=== PATIENT | female | born 1950 | race Caucasian/White ===

== ENCOUNTER 2017-12-17 13:32 | Emergency (ER) | payer MEDICARE, BC, SELFPAY ==
[2017-12-17 13:33] VITALS: BP 168/95; PULSE 72; RESP 16; TEMP 36.2; BMI 40.0
[2017-12-17] MEDS: Ketorolac 10 MG Tablet PO (15:59)
--- NOTE | 2017-12-17 16:19 | ED.DCSUM_ITS ---
- ER Visit Summary Date of Service: 12/17/17 Chief Complaint: Left ankle pain History of Present Illness: The patient is a 67 F who states that she stepped in a hole today falling and as she fell she caused an eversion injury to her left ankle. She notes swelling over the lateral aspect of the left ankle. She notes pain in the foot on the right as well. She denies any other trauma. This happened this morning she is taking Gatzke. Physical Examination: Afebrile vital signs are stable Patient is neurovascular intact. She has swelling over the lateral ATF on the left. No fibular head pain. Tenderness at the base of the fifth metatarsal and the fourth metatarsal on the right. Test Results: X-rays were negative for fracture Emergency Department Course and Treatment: Patient will use Edmond wrap ice and anti-inflammatories. She will follow-up with her doctor if not improving 10-14 days. She advised to use a cane to help support weight. Impression: 1. Right foot sprain 2. Left ankle sprain This note was generated with [employer] dictation software. It may contain incorrect words, spelling, and punctuation that were not noted in review of the chart prior to signing ED Disposition - Plan for ED Patient: Disposition: Home or Assisted Living Chief Complaint: Lower Extremity Injury Instructions: ED Sprain Ankle W X Ray, ED Sprain Foot Prescriptions: Ibuprofen [Motrin] 800 mg PO TID PRN PRN #20 tab PRN Reason: Pain Referrals: Reese Peterson III, MD [Primary Care Provider] - 10-14 Days if not better
[2017-12-17 16:39] VITALS: BP 176/87; PULSE 86; RESP 18; O2SAT 100
== END 2017-12-17 16:40 | disposition home or self-care (01) ==
PROVIDERS: Emergency Provider Emergency Medicine; Family Provider Family Medicine; PCP Family Medicine
DX: S93.402A Sprain of unspecified ligament of left ankle, initial encounter (principal); S93.601A Unspecified sprain of right foot, initial encounter; E66.9 Obesity, unspecified; K21.9 Gastro-esophageal reflux disease without esophagitis; I10 Essential (primary) hypertension; Z79.899 Other long term (current) drug therapy; W17.2XXA Fall into hole, initial encounter; Y93.01 Activity, walking, marching and hiking; Y92.89 Other specified places as the place of occurrence of the external cause; Y99.8 Other external cause status
CPT/HCPCS: 73610; 73630; 99283

== ENCOUNTER → 2019-01-10 | Outpatient (CLI) | payer MEDICARE, BC, SELFPAY ==
--- NOTE | 2019-01-11 15:16 | STRESSREP ---
Stress Test Report Date: 01/10/2019 Procedure: Exercise tolerance test/imaging study Indications: Shortness of breath Consent: Per the patient Procedure: The patient exercised on a Darren protocol for 4 minutes and 2 seconds achieving a peak heart rate of 142 bpm (93 % predicted maximal heart rate) with a peak blood pressure 222/100 mmHg and a peak MET capacity of 5.8 METs. The baseline ECG demonstrated normal sinus rhythm. The peak exercise ECG demonstrated frequent PVCs sometimes in couplets. No significant ischemic changes. EKG during recovery revealed no significant ischemic changes The functional capacity was considered decreased for age. There was [no complaint of chest discomfort during exercise or recovery]. The examination was discontinued secondary to shortness of breath. Impression: 1. Technically adequate (percent predicted maximal heart rate greater than 85%) exercise tolerance test 2. Stress test is negative for exercise-induced EKG changes of ischemia 3. The test test is negative for exercise-induced chest pain 4. Functional capacity is decreased for age 5. Nuclear images pending Myocardial perfusion imaging study: Technique: The patient was injected with 15 mCi of technetium 99m Cardiolite and subsequently rest SPECT Cardiolite nuclear imaging was obtained in the horizontal long, vertical long, and short axis views. The patient exercised on a Darren protocol. Please see above for details. The patient was injected with 44.7 mCi of technetium 99m Cardiolite and subsequently stress SPECT Cardiolite nuclear imaging was obtained in the horizontal long, vertical long, and short axis views. A gated Cardiolite study at peak stress was obtained. Interpretation: Rest and stress SPECT Cardiolite nuclear imaging status post realignment, normalization, and attenuation correction, demonstrates mild decrease in the radioisotope uptake in the apex on both the rest and stress images. The gated Cardiolite study demonstrates no significant regional wall motion abnormalities. The reported LVEF is greater than 70 %. These findings are suggestive of apical thinning, normal variant. Impression: 1. There is no evidence of significant ischemia or infarction. 2. The gated Cardiolite study reports an LVEF of greater than 70 %. This note was generated with [employer] software. It may contain incorrect words, spelling, and punctuation that were not noted in checking the note before signing.
== END | disposition home or self-care (01) ==
LOC: CVS 06:50
PROVIDERS: Family Provider Family Medicine; PCP Family Medicine
DX: R06.02 Shortness of breath (principal); I10 Essential (primary) hypertension
CPT/HCPCS: 78452; 93017; A9500; A4216

== ENCOUNTER 2019-01-28 14:59 | Emergency (ER) | payer MEDICARE, BC, SELFPAY ==
[2019-01-28 15:02] VITALS: BP 159/93; PULSE 64; RESP 16; TEMP 36.8; O2SAT 98; BMI 39.4
--- NOTE | 2019-01-28 15:53 | CT_ITS ---
STUDY: CT ABDOMEN AND PELVIS WITH CONTRAST REASON FOR EXAM: Female, 68 years old. Abdominal pain. Diverticulitis RADIATION DOSAGE (If Supplied By Facility): CTDIvol = ( 17.07 ) mGy, DLP = ( 1143.55 ) mGycm TECHNIQUE: Transaxial images were obtained from the dome of the diaphragm to the symphysis pubis without oral contrast. IV 100mL Isovue-300 100 was administered. Sagittal and coronal images were reconstructed. Individualized dose optimization techniques were used for this CT. COMPARISON: None. FINDINGS: Lung bases demonstrate no evidence for consolidative process. Bibasilar platelike atelectasis. Small hiatal hernia. No pericardial effusion. Hepatic steatosis. Pancreas and adrenal glands are grossly within normal limits. Mild dilatation of the common bile duct post cholecystectomy Spleen appears unremarkable. Bowel gas pattern is nonobstructive. No free intraperineal air. Wall thickening of the sigmoid colon with associated diverticula disease and adjacent inflammatory stranding suggestive of acute uncomplicated sigmoid colonic diverticulitis. No free intraperitoneal air. No drainable fluid collections. Osseous structures demonstrate no acute abnormalities. Kidneys demonstrate no evidence for hydronephrosis. Mild degenerative changes of the lumbar spine. Small sclerotic density in the bilateral 2. Pubic rami IMPRESSION: Acute sigmoid colonic diverticulitis. No evidence for drainable fluid collections. No evidence for free intraperitoneal air. Electronically Signed: Max Jackson, at 17:40 EDT Tel , Service support , CT/Abdomen/Pelvis W IV Cont ONLY
--- NOTE | 2019-01-28 15:54 | ED.VIS.GEN ---
History of Present Illness Chief Complaint: Back Informant: Patient Onset: Yesterday Context: Gradual Onset Timing: Intermittent Current Severity: Moderate Maximum Severity: Moderate Narrative: Patient presents to the emergency department multiple complaints. The patient states that over the past week or so, she is had urinary symptoms. She is had some increased frequency and urgency. She states yesterday, she began to have chills, nausea, and one episode of vomiting. She also began to have loose watery diarrhea and pain in her left lower quadrant. She does have a history of diverticulitis and states this feels similar. States today, she began have some pain in her right low back that was worse with motion. She denies any trauma. She denies any falls. Patient does have history of hypertension and hypothyroid. She is had a vaginal hysterectomy but no other abdominal surgery. She is otherwise been in her normal state of health. Prior similar symptoms: No Recent Illness/Hospitalization: No Past Medical History - Allergies and Home Meds Allergies/Adverse Reactions: Allergies No Known Allergies Allergy (Verified 01/28/19 15:02) Primary Care Physician: Reese Peterson III, MD [Primary Care Provider] - Prior records reviewed: Yes Past Medical History: - - Hypertension, hypothyroid Surgical History: hysterectomy Smoking Status: Former smoker Review of Systems General: Reports: Chills. Denies: Fever, Sweats Eyes: Denies: Visual changes - bilaterally, Diplopia ENT: Denies: Rhinorrhea, Sore throat Cardiovascular: Denies: Chest pain, Palpitations Respiratory: Denies: Dyspnea, Cough, Dyspnea on exertion Gastrointestinal: Reports: Abdominal pain, Nausea, Vomiting, Diarrhea. Denies: Melena, Hematochezia Genitourinary: Reports: Dysuria, Frequency. Denies: Hematuria Musculoskeletal: Reports: Back pain. Denies: Extremity Pain Skin: Denies: Rash, Wounds Neurological: Denies: Headache, Weakness, Numbness Physical Exam Vital Signs/Narrative: Vital Signs Temp Pulse Resp BP Pulse Ox 01/28/19 15:02 98.3 F 64 16 159/93 H 98 Inital Vital Signs reviewed: Yes General: Well nourished, Well developed, No Acute Distress Head: Normocephalic, Atraumatic Eyes: Perrl, EOMI ENT: Moist mucous membranes, No rhinorrhea Neck: Supple, Nontender Cardiovascular: Regular rate, Regular rhythm, No murmurs Respiratory: No distress, CTA bilaterally, Chest nontender Abdomen: Soft, Nondistended, Normal bowel sounds, Tender. Negative for: Guarding, Rebound tenderness Back: Nontender, Normal Inspection Extremities: Nontender, No edema Skin: Normal color, No rash Neurological: Alert, Oriented x3, Cranial nerves II-XII grossly intact, Normal Strength, Normal Sensation Psychological: Normal affect, Normal Mood Diagnostic/Tx/Re-eval Clinical Impression(s) from Imaging Studies Abdomen/Pelvis CT 01/28/19 15:53 Abnormal Lab Results 01/28/19 01/28/19 01/28/19 15:50 16:10 16:10 WBC 12.2 H RBC 5.15 Hgb 15.2 H Hct 46.1 MCV 89.5 MCH 29.5 MCHC 33.0 RDW Std Deviation 43.8 RDW Coeff of Arvind 13.5 Plt Count 263 MPV 10.4 Immature Gran % (Auto) 0.400 Neut % (Auto) 71.1 H Lymph % (Auto) 18.8 L [place] % (Auto) 8.9 Eos % (Auto) 0.4 Baso % (Auto) 0.4 Absolute Neuts (auto) 8.7 H Absolute Lymphs (auto) 2.30 Nucleated RBC % 0 Sodium 137 Potassium 5.0 Chloride 103 Carbon Dioxide 25.0 Anion Gap 9 BUN 13 Creatinine 0.95 Estim Creat Clear Calc 48.94 Est GFR (MDRD) Af Amer 75 Est GFR (MDRD) Non-Af 62 BUN/Creatinine Ratio 13.7 Glucose 92 Lactic Acid Calcium 9.6 Total Bilirubin 1.30 H AST 30 ALT 26 Alkaline Phosphatase 80 Total Protein 8.8 H Albumin 3.6 Globulin 5.2 H Albumin/Globulin Ratio 0.7 L Urine Color Yellow Urine Clarity Sl. Cloudy Urine pH 6.0 Ur Specific [place] 1.010 Urine Protein Negative Urine Glucose (UA) Normal Urine Ketones 15 H Urine Occult Blood Negative Urine Nitrite Negative Urine Bilirubin Negative Urine Urobilinogen Normal Ur Leukocyte Esterase Negative Urine RBC 0 SEEN Urine WBC 0 SEEN Ur Squamous Epith Cells 0-5 SEEN Urine Bacteria 0 SEEN Urine Mucus 0 SEEN 01/28/19 16:10 WBC RBC Hgb Hct MCV MCH MCHC RDW Std Deviation RDW Coeff of Arvind Plt Count MPV Immature Gran % (Auto) Neut % (Auto) Lymph % (Auto) [place] % (Auto) Eos % (Auto) Baso % (Auto) Absolute Neuts (auto) Absolute Lymphs (auto) Nucleated RBC % Sodium Potassium Chloride Carbon Dioxide Anion Gap BUN Creatinine Estim Creat Clear Calc Est GFR (MDRD) Af Amer Est GFR (MDRD) Non-Af BUN/Creatinine Ratio Glucose Lactic Acid 1.3 Calcium Total Bilirubin AST ALT Alkaline Phosphatase Total Protein Albumin Globulin Albumin/Globulin Ratio Urine Color Urine Clarity Urine pH Ur Specific [place] Urine Protein Urine Glucose (UA) Urine Ketones Urine Occult Blood Urine Nitrite Urine Bilirubin Urine Urobilinogen Ur Leukocyte Esterase Urine RBC Urine WBC Ur Squamous Epith Cells Urine Bacteria Urine Mucus - Medical Decision Making IV was established. Patient was given analgesics and had total resolution of her pain. Screening labs are unremarkable. Urine does not show evidence of infection. CT demonstrates uncomplicated diverticulitis of the sigmoid colon. I do feel that this is likely irritation causing her urinary frequency. The patient does not have a fever. She is feeling improved. She wants to attempt outpatient therapy and I feel this is reasonable. The patient will be treated with Cipro and Flagyl. She will be given a short course of analgesics. She was counseled concerning symptoms and reasons to return. She will be discharged home. Impression 1. Acute uncomplicated diverticulitis ED Disposition - Plan for ED Patient: Disposition: Home or Assisted Living Instructions: Diverticulitis Prescriptions: Ciprofloxacin [Cipro] 500 mg PO BID #14 tab Prescription Printed metroNIDAZOLE [Flagyl] 500 mg PO Q8H #21 tab Prescription Printed Hydrocodone Bitart/Apap 5-325 [[place] 5MG-325MG] 1 tab PO Q6H PRN PRN 3 Days #10 tab PRN Reason: Pain Prescription Printed Referrals: Reese Peterson III, MD [Primary Care Provider] -
[2019-01-28 15:55] LABS: Bacteria 0 SEEN /hpf (None Seen); Mucous, Urine 0 SEEN /hpf (<or=2+); Red Blood Cells-Urine 0 SEEN /hpf (0-5); White Blood Cells 0 SEEN /hpf (0-5)
[2019-01-28 15:59] LABS: Color, Urine Yellow (Yellow); Glucose, Dipstick Normal (Normal); Ketone-Dipstick 15 mg/dl (Negative); Leukocyte Esterase-Dipstick Negative /ul (Negative); Nitrite-Dipstick Negative (Negative); Occult Blood-Urine Negative /ul (Negative); Protein-Dipstick Negative (Negative); Urine Bilirubin Dipstick Negative (Negative); Urine Clarity Sl. Cloudy (Clear); Urine Urobilinogen Normal (Normal)
[2019-01-28 16:10] LABS: Squamous Epithelial Cells - UA 0-5 SEEN /hpf (5-10)
[2019-01-28] MEDS: Ondansetron 4 MG/2 ML Vial IV (16:13)
[2019-01-28] MEDS: 0.9% Normal Saline 1,000 ML 1000 ML IV (16:13)
[2019-01-28] MEDS: Morphine 4 MG/ML Syringe IV (16:14)
[2019-01-28 16:28] LABS: Absolute Neutrophil Count 8.7 X10^3/uL (2.0-7.7); Basophil# 0.05 X10^3/uL; Basophil% 0.4 % (0-1); Eosinophil# 0.05 X10^3/uL; Eosinophils% 0.4 % (0-5); Hematocrit 46.1 % (37-47); Hemoglobin 15.2 g/dL (12.0-15.0); Lymphocyte % 18.8 % (19-41); Mean Corpuscular Hgb 29.5 pg (27.0-32.0); Mean Corpuscular Volume 89.5 fL (81-99); Mean Platelet Vol. 10.4 fl (6.2-12.0); Monocyte# 1.09 X10^3/uL; Monocyte% 8.9 % (0-10); NRBC Flagged by Analyzer 0 % (0-5); Neutrophil % 71.1 % (47-70); Platelet Count 263 K/mm3 (150-450); RBC Distribution Width CV 13.5 % (11.6-14.6); RBC Distribution Width SD 43.8 fl (35.1-43.9); Red Blood Count 5.15 M/mm3 (4.2-5.4); White Blood Count 12.2 K/mm3 (4.4-11.0)
[2019-01-28 16:45] LABS: ALB/GLOB Ratio 0.7 RATIO (0.9-2.4); AST(SGOT) 30 U/L (15-37); Alanine Aminotransfer ALT/SGPT 26 U/L (13-56); Albumin, Serum 3.6 g/dL (3.2-5.0); Alkaline Phosphatase 80 U/L (45-117); Anion Gap 9 (5-15); BUN 13 mg/dL (7-18); BUN/Creat Ratio 13.7 RATIO (10-20); Calcium,Total 9.6 mg/dL (8.5-10.1); Chloride 103 mmol/L (98-107); Creatinine, Serum 0.95 mg/dL (0.55-1.02); EST Glomerular Filtration Rate 62 mL/min (>60); Est Glom Filt Rate - Afr Amer 75 mL/min (>60); Estimated Creatinine Clearance 48.94 ml/min; Globulin 5.2 g/dL (2.2-4.2); Glucose 92 mg/dL (74-106); Protein, Total 8.8 g/dL (6.4-8.2); Sodium Level 137 mmol/L (136-145)
[2019-01-28 16:51] LABS: Lactic Acid 1.3 mmol/L (0.4-2.0)
[2019-01-28 17:23] VITALS: RESP 16
[2019-01-28 18:29] VITALS: BP 166/69; PULSE 56; RESP 16; O2SAT 97
== END 2019-01-28 18:30 | disposition home or self-care (01) ==
LOC: ED 16:15
PROVIDERS: Emergency Medicine; Emergency Provider Emergency Medicine; Family Provider Family Medicine; PCP Family Medicine
DX: K57.32 Diverticulitis of large intestine without perforation or abscess without bleeding (principal); E03.9 Hypothyroidism, unspecified; I10 Essential (primary) hypertension; Z79.899 Other long term (current) drug therapy; Z87.891 Personal history of nicotine dependence
CPT/HCPCS: 74177; 80053; 81001; 83605; 85025; 96361; 96374; 96375; 99284; J7030; Q9967; J2405

== ENCOUNTER 2020-12-21 13:36 | Emergency (ER) | payer MEDICARE, BC, SELFPAY ==
[2020-12-21 13:37] VITALS: BP 158/72; PULSE 81; RESP 16; TEMP 37.3; O2SAT 97; BMI 37.8
--- NOTE | 2020-12-21 14:29 | EDS_ITS ---
HPI HPI - GI History of Present Illness Chief Complaint: Abd Pain Informant: patient Abdominal Pain/Flank Pain Onset: Days Context: Gradual Onset Timing: Continuous and Waxes and wanes Quality: Aching Location: LLQ Current Severity: Mild Maximum Severity: Severe Worsened by: Car ride and Movement Relieved by: Nothing Nausea/Vomiting/Emesis GI Symptom: Positive for Nausea; Negative for Vomiting Onset: Yesterday Diarrhea/Melena/Hematochezia GI Symptom: Positive for Diarrhea; Negative for Melena and Hematochezia Onset: Yesterday Stool Quality: Positive for Loose; Negative for Mucous, Black, Maroon and BRB per rectum Associated Symptoms Associated Symptoms: Negative for Dysuria, Frequency and Hematuria Narrative Narrative: Patient is an elderly woman with history of diverticulitis. Patient's had 6 episodes of diverticulitis since April. She is under the care of Dr. Amaya and Dr. William Ventura. She had an outpatient CAT scan of her abdomen performed on , December 18. CAT scan reveals diverticulitis that is worse than prior scan. She complains of subjective fever and chills. She denies cardiac respiratory symptoms. She denies dysuria, frequency, urgency or hematuria. He denies blood or mucus in her stool. She has no allergies to penicillin. Prior similar symptoms: Yes Recent Illness/Hospitalization: Yes [facility], [facility] Medical History (Updated 12/21/20 @ 15:[address] Flip Acevedo MD) Diverticulitis GERD (gastroesophageal reflux disease) Home Medications Omeprazole [Prilosec] 40 mg PO DAILY 11/25/16 [History Last Taken Unknown] levothyroxine 75 mcg PO DAILY 11/25/16 [History Last Taken Unknown] cholecalciferol (vitamin D3) [Vitamin D] 1,000 unit PO DAILY 12/17/17 [History Last Taken Unknown] amoxicillin-pot clavulanate 875 mg PO Q12H #20 tablet 12/21/20 [Rx Last Taken Unknown] hydrocodone-acetaminophen 1 tab PO Q6H PRN PRN 3 Days #10 tablet 12/21/20 [Rx Last Taken Unknown] lisinopril-hydrochlorothiazide 1 tab PO DAILY 12/21/20 [History Last Taken Unknown] Allergy/AdvReac Type Severity Reaction Status Date / Time No Known Allergies Allergy Verified 12/21/20 13:40 Social History (Updated 12/21/20 @ 14:[address] Flip Acevedo MD) household members: significant other Smoking Status: Never smoker alcohol intake: current alcohol intake frequency: holidays/special occasions only substance use type: does not use ROS ROS ED Constitutional Constitutional ED: Reports chills, fever(s) and subjective; Denies sweats or weight loss ENT ENT ED: Denies ear pain, rhinorrhea or sore throat Cardiovascular Cardiovascular: Denies chest pain, orthopnea, palpitations or paroxysmal nocturnal dyspnea Respiratory/Chest Respiratory/Chest: Denies cough, dyspnea, dyspnea on exertion, orthopnea, paroxysmal nocturnal dyspnea or sputum Gastrointestinal Gastrointestinal: Reports abdominal pain, constipation, diarrhea and nausea; Denies melena or vomiting Genitourinary Genitourinary ED: Denies dysuria, hematuria or urinary frequency Musculoskeletal Musculoskeletal: Denies arthralgias or myalgias Integumentary Denies rash Neurologic Neurologic: Reports weakness; Denies headache(s) Endocrine Endocrinology: Denies polydipsia, polyphagia or polyuria Hematologic/Lymphatic Hematologic/Lymphatic: Denies easy bleeding or easy bruising EXAM Physical Exam Const Vital Signs: 12/21/20 13:37 Temperature 99.2 F H Temperature Source Temporal Pulse Rate 81 Respiratory Rate 16 Blood Pressure 158/72 H Blood Pressure Mean 100 Pulse Ox 97 Oxygen Delivery Method Room Air Positive well nourished, well developed and obese General Appearance ED: well developed; Negative for pallor Nutritional Appearance: obese HEENT Reports TM's clear and dry mucous membranes normocephalic and atraumatic Tympanic Membrane ED: Yes TM's clear Mouth ED: Yes dry mucous membranes Mouth: dry mucous membranes Eyes PERRL and EOMs intact bilaterally General Eye ED: Negative for pale conjunctiva or scleral icterus Neck no lymphadenopathy and supple Resp normal respiratory effort and clear to auscultation bilaterally Cardio regular rate, regular rhythm, S1 normal heart sound, S2 normal heart sound and no murmurs GI Negative for non-tender or non-distended Inspection: abdominal distention Auscultation: hypoactive bowel sounds; Negative for normoactive bowel sounds Palpation: soft, tender and guarding LLQ; Negative for rigid or rebound tender ness present Back/Spine no CVA tenderness Cervical Spine: Negative for cervical spine tenderness Thoracic Spine / Upper Back: Negative for thoracic spinal tenderness Lumbar Spine / Lower Back: Negative for lumbar spinal tenderness Extremity full ROM General Extremety ED: Negative for edema General Extremity: Negative for edema Neuro CN's II-XII intact bilaterally Sensorium / Orientation: alert, oriented to person, oriented to place and oriented to time Psych mental status grossly normal Skin no wounds General Skin Exam: Negative for jaundice or pallor Lesions: no lesions Rashes: no rashes MDM MDM MDM Narrative Medical decision making narrative: With left lower quadrant pain abnormal CAT scan on patient has diverticulitis. Since she complains of subjective fever with chills will obtain blood work and will administer 4.5 g of Zosyn. Patient does not have peritoneal findings. If blood work is not markedly abnormal she is a candidate for outpatient antibiotics and follow-up with her PCP and surgeon. Since patient is not febrile and white count is only slight elevated with no peritoneal findings will discharge to home with appropriate instructions and antibiotics. Lab Data Attestation: I reviewed the patient's lab results. Lab results narrative: White count is elevated. There is no bandemia. Electrolyte panel is unremarkable. Labs: Laboratory Results - last 24 hr 12/21/20 12/21/20 14:40 14:40 WBC 13.3 H RBC 4.78 Hgb 13.9 Hct 41.5 MCV 86.8 MCH 29.1 MCHC 33.5 RDW Std Deviation 42.1 RDW Coeff of Arvind 13.2 Plt Count TNP MPV 10.7 Immature Gran % (Auto) 0.400 Neut % (Auto) 81.8 H Lymph % (Auto) 10.3 L [place] % (Auto) 6.1 Eos % (Auto) 0.9 Baso % (Auto) 0.5 Absolute Neuts (auto) 10.9 H Absolute Lymphs (auto) 1.37 Nucleated RBC % 0 Differential Comment SCANNED Platelet Estimate ADEQUATE Sodium 137 Potassium 3.9 Chloride 100 Carbon Dioxide 30.0 Anion Gap 7 BUN 16 Creatinine 0.90 Estim Creat Clear Calc 50.23 Est GFR (MDRD) Af Amer 80 Est GFR (MDRD) Non-Af 66 BUN/Creatinine Ratio 17.9 Glucose 108 H Calcium 9.5 Discharge Plan Triage Chief Complaint: Abd Pain ED Provider: Flip Acevedo Dx/Rx/DC Orders Clinical Impression: Diverticulitis large intestine Instructions: ED Diverticulitis Prescriptions: New hydrocodone-acetaminophen [hydrocodone-acetaminophen] 1 TABLET tablet 1 tab PO Q6H PRN PRN (Reason: Pain) 3 Days Qty: 10 RF: 0 amoxicillin-pot clavulanate [amoxicillin-pot clavulanate] 875 MG tablet 875 mg PO Q12H Qty: 20 RF: 0 No Action Omeprazole [Prilosec] 40 MG capsule 40 mg PO DAILY RF: 0 levothyroxine 75 MCG tablet 75 mcg PO DAILY RF: 0 cholecalciferol (vitamin D3) [Vitamin D3] 1,000 UNIT tablet 1,000 unit PO DAILY RF: 0 lisinopril-hydrochlorothiazide 10-12.5 mg tablet 1 tab PO DAILY RF: 0 Primary Care Provider: Care Physician,No Primary Referrals: William Fitzgerald MD [STAFF PHYSICIAN] - 3-5 Days if not improving Care Physician,No Primary [Primary Care Provider] - Disposition Disposition: Home, Self Care
[2020-12-21] MEDS: Morphine 4 MG/ML Syringe IV (14:42)
[2020-12-21] MEDS: Ondansetron 4 MG/2 ML Vial IV (14:42)
[2020-12-21] MEDS: 0.9% Normal Saline 1,000 ML 1000 ML IV (14:44)
[2020-12-21 15:00] LABS: Absolute Lymphocyte Count 1.37 X10^3/uL (0.83-4.51); Absolute Neutrophil Count 10.9 X10^3/uL (2.0-7.7); Basophil# 0.06 X10^3/uL; Basophil% 0.5 % (0-1); Eosinophil# 0.12 X10^3/uL; Eosinophils% 0.9 % (0-5); Hematocrit 41.5 % (37-47); Hemoglobin 13.9 g/dL (12.0-15.0); Lymphocyte # 1.37 X10^3/ul (0.83-4.51); Lymphocyte % 10.3 % (19-41); Mean Corp Hgb Conc 33.5 g/dL (32-36); Mean Corpuscular Hgb 29.1 pg (27.0-32.0); Mean Corpuscular Volume 86.8 fL (81-99); Mean Platelet Vol. 10.7 fl (6.2-12.0); Monocyte# 0.81 X10^3/uL; Monocyte% 6.1 % (0-10); NRBC Flagged by Analyzer 0 % (0-5); Neutrophil # 10.87 X10^3/uL (2.7-7.7); Neutrophil % 81.8 % (47-70); POSITIVE COUNT YES; RBC Distribution Width CV 13.2 % (11.6-14.6); RBC Distribution Width SD 42.1 fl (35.1-43.9); Red Blood Count 4.78 M/mm3 (4.2-5.4); White Blood Count 13.3 K/mm3 (4.4-11.0)
[2020-12-21 15:06] LABS: Anion Gap 7 (5-15); BUN 16 mg/dL (7-18); BUN/Creat Ratio 17.9 RATIO (10-20); Calcium,Total 9.5 mg/dL (8.5-10.1); Chloride 100 mmol/L (98-107); EST Glomerular Filtration Rate 66 mL/min (>60); Est Glom Filt Rate - Afr Amer 80 mL/min (>60); Estimated Creatinine Clearance 50.23 ml/min; Glucose 108 mg/dL (74-106); Potassium 3.9 mmol/L (3.5-5.1); Sodium Level 137 mmol/L (136-145)
[2020-12-21 15:22] LABS: Differential Indicated SCAN CRITERIA MET
[2020-12-21 15:23] LABS: Differential Comment SCANNED
[2020-12-21 15:24] LABS: Platelet Estimate ADEQUATE (ADEQ)
[2020-12-21 16:19] VITALS: BP 137/61; PULSE 65; RESP 16
== END 2020-12-21 16:21 | disposition home or self-care (01) ==
PROVIDERS: Emergency Provider Emergency Medicine
DX: K57.32 Diverticulitis of large intestine without perforation or abscess without bleeding (principal); E66.9 Obesity, unspecified; K21.9 Gastro-esophageal reflux disease without esophagitis; Z79.899 Other long term (current) drug therapy
CPT/HCPCS: 80048; 85025; 96365; 96375; 99284; J7030; A4216; J2405

== ENCOUNTER 2021-03-03 16:25 | Observation (INO) | payer MEDICARE, BC, SELFPAY ==
[2021-03-03] VITALS (8 sets, daily range): BP systolic 187–206; BP diastolic 70–89; PULSE 62–78; RESP 16–22; TEMP 35.6–37.1; O2SAT 94–97; BMI 42.5; BMI 35.4
--- NOTE | 2021-03-03 16:37 | EKG12_ITS ---
Test Reason : CHEST PRESSURE Blood Pressure : / mmHG Vent. Rate : 070 BPM Atrial Rate : 070 BPM P-R Int : 156 ms QRS Dur : 078 ms QT Int : 446 ms P-R-T Axes : 042 -04 015 degrees QTc Int : 481 ms Normal sinus rhythm Nonspecific ST abnormality Abnormal ECG Confirmed by MURRAY LOWE, JN ([id number]), editor producer PATRICK RANDALL ([id number]) on 03/06/2021 7:11:36 AM Referred By: Confirmed By:JN GAO MD
[2021-03-03 17:29] LABS: Absolute Lymphocyte Count 1.38 X10^3/uL (0.83-4.51); Absolute Neutrophil Count 3.4 X10^3/uL (2.0-7.7); Basophil# 0.05 X10^3/uL; Basophil% 0.9 % (0-1); Eosinophil# 0.17 X10^3/uL; Hematocrit 31.9 % (37-47); Hemoglobin 10.5 g/dL (12.0-15.0); Lymphocyte # 1.38 X10^3/ul (0.83-4.51); Lymphocyte % 24.2 % (19-41); Mean Corp Hgb Conc 32.9 g/dL (32-36); Mean Corpuscular Hgb 29.4 pg (27.0-32.0); Mean Corpuscular Volume 89.4 fL (81-99); Mean Platelet Vol. 10.6 fl (6.2-12.0); Monocyte% 12.3 % (0-10); NRBC Flagged by Analyzer 0 % (0-5); Neutrophil # 3.39 X10^3/uL (2.7-7.7); Neutrophil % 59.2 % (47-70); Platelet Count 350 K/mm3 (150-450); RBC Distribution Width CV 17.1 % (11.6-14.6); RBC Distribution Width SD 55.5 fl (35.1-43.9); Red Blood Count 3.57 M/mm3 (4.2-5.4); White Blood Count 5.7 K/mm3 (4.4-11.0)
--- NOTE | 2021-03-03 17:30 | EDS_ITS ---
HPI History of Present Illness Chief Complaint: Chest Pain Informant: patient Onset/Context/Timing Onset: Weeks (1 week) Activity at onset: gradual Timing: Waxes and wanes Quality: Positive for - (Tight band around lower chest) Current Severity: Mild Maximum Severity: Moderate Narrative Narrative: Patient presents with a 1 week history of tight sensation around her lower chest. She does state pain seems to be worse when she lies down and better when she sits up. It does not seem to be consistent with reflux. She states that the home health nurse came to check on her today and noted her blood pressure to be quite high so she was sent to the emergency room. [facility] Medical History Diverticulitis GERD (gastroesophageal reflux disease) Hypertension Home Medications levothyroxine 75 mcg PO DAILY 11/25/16 [History Last Taken Unknown] cholecalciferol (vitamin D3) [Vitamin D] 1,000 unit PO DAILY 12/17/17 [History Last Taken Unknown] amoxicillin-pot clavulanate 875 mg PO Q12H #20 tablet 12/21/20 [Rx Last Taken Unknown] hydrocodone-acetaminophen 1 tab PO Q6H PRN PRN 3 Days #10 tablet 12/21/20 [Rx Last Taken Unknown] lisinopril-hydrochlorothiazide 1 tab PO DAILY 12/21/20 [History Last Taken Unknown] omeprazole 40 mg PO DAILY 03/03/21 [History Last Taken Unknown] Allergy/AdvReac Type Severity Reaction Status Date / Time oxycodone AdvReac Other Verified 03/03/21 16:29 Social History household members: significant other Smoking Status: Never smoker alcohol intake: current alcohol intake frequency: holidays/special occasions only substance use type: does not use ROS ROS ED Constitutional Constitutional ED: Denies chills or fever(s) Eyes Eyes: Denies change in vision ENT ENT ED: Denies sore throat Cardiovascular Cardiovascular: Reports chest pain Respiratory/Chest Respiratory/Chest: Denies cough or dyspnea Gastrointestinal Gastrointestinal: Reports abdominal pain and other Details: Recent abdominal surgery with expected postop pain. ; Denies diarrhea, nausea or vomiting Genitourinary Genitourinary ED: Denies dysuria Musculoskeletal Musculoskeletal: Denies back pain Integumentary Denies rash Neurologic Neurologic: Denies headache(s) or weakness Allergic/Immunologic Allergic/Immunologic ED: Denies urticaria EXAM Physical Exam Const Vital Signs: 03/03/21 16:26 03/03/21 18:08 03/03/21 18:09 Temperature 96.1 F L Temperature Source Temporal Pulse Rate 68 78 Respiratory Rate 18 22 H Respiratory Effort Normal Blood Pressure 187/87 H 201/89 H Blood Pressure Mean 120 126 Pulse Ox 97 94 Oxygen Delivery Method Room Air Room Air 03/03/21 19:17 Temperature Temperature Source Pulse Rate Respiratory Rate Respiratory Effort Blood Pressure 206/85 H Blood Pressure Mean 125 Pulse Ox 94 Oxygen Delivery Method Positive well nourished and well developed General Appearance ED: well developed HEENT Reports normocephalic and head/scalp atraumatic Eyes PERRL and EOMs intact bilaterally Neck supple Chest Wall inspection of chest normal and palpation of chest normal Resp normal respiratory effort and clear to auscultation bilaterally Cardio regular rate and regular rhythm GI soft to palpation GI Narrative: Appropriate postop tenderness. Lower abdominal colostomy noted. Hypoactive but present bowel sounds. Palpation: soft Extremity normal to inspection Neuro oriented x3 and no sensory deficits noted Sensorium / Orientation: alert Motor Exam: strength 5/5 throughout Psych mental status grossly normal Skin no rashes or lesions noted MDM MDM MDM Narrative Medical decision making narrative: EKG, chest x-ray, lab work obtained. Lab Data Labs: Laboratory Results - last 24 hr 03/03/21 03/03/21 03/03/21 17:00 17:00 19:15 WBC 5.7 RBC 3.57 L Hgb 10.5 L Hct 31.9 L MCV 89.4 MCH 29.4 MCHC 32.9 RDW Std Deviation 55.5 H RDW Coeff of Arvind 17.1 H Plt Count 350 MPV 10.6 Immature Gran % (Auto) 0.400 Neut % (Auto) 59.2 Lymph % (Auto) 24.2 [place] % (Auto) 12.3 H Eos % (Auto) 3.0 Baso % (Auto) 0.9 Absolute Neuts (auto) 3.4 Absolute Lymphs (auto) 1.38 Nucleated RBC % 0 Sodium 141 Potassium 2.9 L Chloride 102 Carbon Dioxide 35.0 H Anion Gap 4 L BUN 3 L Creatinine 0.73 Estim Creat Clear Calc 47.10 Est GFR (MDRD) Af Amer 101 Est GFR (MDRD) Non-Af 83 BUN/Creatinine Ratio 4.1 L Glucose 96 Calcium 9.0 Troponin I High Sens 25 45 Radiography Chest X-Ray - ED: 1 View and Chronic Changes Diagnostic Testing: Clinical Impression(s) from Imaging Studies Chest X-Ray 03/03/21 17:53 IMPRESSION: No acute cardiopulmonary process. Electronically Signed: Manny Urias MD ([place]) at 18:11 EST , Service support , EKG Initial EKG: Attestation: I personally reviewed and interpreted this EKG as follows: Interpretation: Sinus Rhythm (Sinus at 70 with no acute ischemia.) Treatment and Re-Evaluation Comments:: Patient's blood pressure remained elevated up to as high as 206/85. She is given 10 mg of IV labetalol. Initial lab work significant for potassium low at 2.9. This is replaced orally. Initial troponin is 25 with repeat at 45. Patient's blood pressure remains elevated at 195/70 after labetalol. She will be given a second dose of labetalol at 20 mg. I will speak with hospitalist regarding observation for hypertensive urgency. Discharge Plan Triage Chief Complaint: Chest Pain ED Provider: Temi Goldstein Dx/Rx/DC Orders Clinical Impression: Hypertensive urgency Prescriptions: No Action levothyroxine 75 MCG tablet 75 mcg PO DAILY RF: 0 cholecalciferol (vitamin D3) [Vitamin D3] 1,000 UNIT tablet 1,000 unit PO DAILY RF: 0 lisinopril-hydrochlorothiazide 10-12.5 mg tablet 1 tab PO DAILY RF: 0 hydrocodone-acetaminophen [hydrocodone-acetaminophen] 1 TABLET tablet 1 tab PO Q6H PRN PRN (Reason: Pain) 3 Days Qty: 10 RF: 0 amoxicillin-pot clavulanate [amoxicillin-pot clavulanate] 875 MG tablet 875 mg PO Q12H Qty: 20 RF: 0 omeprazole 40 mg capsule,delayed release(DR/EC) 40 mg PO DAILY RF: 0 Primary Care Provider: Care Physician,No Primary Referrals: Care Physician,No Primary [Primary Care Provider] - Disposition Disposition: [facility]
[2021-03-03 17:43] LABS: Anion Gap 4 (5-15); BUN 3 mg/dL (7-18); BUN/Creat Ratio 4.1 RATIO (10-20); Chloride 102 mmol/L (98-107); Creatinine, Serum 0.73 mg/dL (0.55-1.02); EST Glomerular Filtration Rate 83 mL/min (>60); Est Glom Filt Rate - Afr Amer 101 mL/min (>60); Glucose 96 mg/dL (74-106); Potassium 2.9 mmol/L (3.5-5.1); Sodium Level 141 mmol/L (136-145); Troponin-I HS 25 pg/mL (3.0-54.0)
--- NOTE | 2021-03-03 17:53 | RAD_ITS ---
STUDY: X-RAY CHEST REASON FOR EXAM: Female, 70 years old. PT C/O CHEST PRESSURE X 1 WEEK, ELEVATED BP RECENT COLOSTOMY SURGERY IN [place] TECHNIQUE: AP COMPARISON: None. FINDINGS: EKG leads project over the chest. The lungs are clear and expanded. There is no demonstrated pleural abnormality. There is mild cardiac enlargement. Normal mediastinum and gregory. Normal visualized pulmonary arteries. There is atherosclerotic calcification of the aortic arch with tortuosity. There is demineralization of the osseous structures. Normal visualized ribs, clavicles, and shoulders. There is no demonstrated abnormality of the visualized soft tissue structures of the upper abdomen. RAD/Chest 1 View (Portable) IMPRESSION: No acute cardiopulmonary process. Electronically Signed: Manny Urias MD (Brooks) at 18:11 EST , Service support ,
[2021-03-03] MEDS: Potassium Chloride Oral Tablet 20 MEQ 40 MEQ PO (18:12)
[2021-03-03] MEDS: Labetalol (Prefilled) 20 MG/4 ML 10 MG IV (19:20)
[2021-03-03 19:40] LABS: Troponin-I HS 45 pg/mL (3.0-54.0)
--- NOTE | 2021-03-03 20:05 | HP.PCM.HOS_ITS ---
HPI - General General Date of Admission: 03/03/21 HPI Narrative PATRICIA BHAGAT, is a 70 F with a significant history of hypothyroidism; and hypertension who presents at the emergency department with elevated blood pressure. On the day of presentation home health saw patient. Blood pressure measured returned around 193/95. Home health called MD and patient was instructed come to the emergency department. Reportedly a 4-day before presentation patient systolic blood pressure checked by home health was about 189. Importantly patient was at [facility] on February 06, 2021 and was d ischarged on 25 February 2021. Reportedly had an abdominal infection and at that hospital visit he had a colostomy and appendectomy. He reported that while at [facility] his blood pressure was in the 180s. Patient reported that he is on lisinopril and hydrochlorothiazide that she takes daily. She reported that at that point her previous dose was cut into half because his blood pressure at that time was not elevated. Patient reports weight gain. She reported that she was about to 213 pounds but at 3 days before she got out of [facility] her weight increased to 256 pounds. She reports shortness of breath. She reports back pain aggravated by lying flat and improved by sitting up. Also she reports a bandlike pain around her a epigastrium and upper abdomen to her back. [facility] Medical History Depression Diverticulitis Former smoker GERD (gastroesophageal reflux disease) Hypertension Hyperthyroidism Home Medications levothyroxine 75 mcg PO DAILY 11/25/16 [History Last Taken Unknown] cholecalciferol (vitamin D3) [Vitamin D] 1,000 unit PO DAILY 12/17/17 [History Last Taken Unknown] amoxicillin-pot clavulanate 875 mg PO Q12H #20 tablet 12/21/20 [Rx Last Taken Unknown] hydrocodone-acetaminophen 1 tab PO Q6H PRN PRN 3 Days #10 tablet 12/21/20 [Rx Last Taken Unknown] lisinopril-hydrochlorothiazide 1 tab PO DAILY 12/21/20 [History Last Taken Unknown] omeprazole 40 mg PO DAILY 03/03/21 [History Last Taken Unknown] Allergy/AdvReac Type Severity Reaction Status Date / Time oxycodone AdvReac Other Verified 03/03/21 16:29 Family History Other Hypertension Surgical History History of appendectomy History of colostomy Social History household members: significant other housing: house Smoking Status: Never smoker alcohol intake: current alcohol intake frequency: holidays/special occasions only substance use type: does not use ROS ROS Narrative Constitutional: Denies fever, chills, fatigue, anorexia and change in weight Eyes: Denies blurry vision, change in eye color, change in vision, discharge f rom eye(s), double vision, erythema, eye pain, loss of vision or other HEENT: Reports headache. Denies abnormal hearing, dysphagia, ear pain, epistaxis, hearing loss, nasal congestion, nasal discharge, post nasal drip, sinus pressure, sore throat or other Cardiovascular: Denies chest pain or palpitations. Respiratory/Chest: Reports shortness of breath, and productive cough. Gastrointestinal: Reports abdominal pain, coffee ground emesis, constipation, diarrhea, dyspepsia, hematemesis, hematochezia, loose stools, melena, nausea, vomiting or other Genitourinary: Denies burning urination, difficulty urinating, dysuria, hematuria, nocturia, urinary frequency, urinary hesitancy, urinary incontinence, urinary urgency or other Musculoskeletal: Reports back pain. Denies myalgia. Neurologic: Denies abnormal gait, abnormal speech, confusion, disequilibrium, dizziness, focal weakness, headache(s), numbness, paresthesias, seizure-like activity, seizures, syncope, tingling, tremor(s) or other Psychiatric: Denies anxiety, depression, homicidal ideation, suicidal ideation or other Endocrinology: Denies change in body appearance, cold intolerance, excessive sweating, heat intolerance, polydipsia, polyuria or other Hematologic/Lymphatic: Denies anemia, easy bleeding, easy bruising, l ymphadenopathy or other Integumentary: Denies rashes Allergic/Immunologic: Denies rhinitis, hives, eczema, asthma or other Vital Signs Vital Signs Vital Signs: 03/03/21 16:26 03/03/21 18:08 03/03/21 18:09 Temperature 96.1 F L Temperature Source Temporal Pulse Rate 68 78 Respiratory Rate 18 22 H Respiratory Effort Normal Blood Pressure 187/87 H 201/89 H Blood Pressure Mean 120 126 Pulse Ox 97 94 Oxygen Delivery Method Room Air Room Air 03/03/21 19:17 03/03/21 19:30 Temperature Temperature Source Pulse Rate 64 Respiratory Rate 20 H Respiratory Effort Blood Pressure 206/85 H 195/70 H Blood Pressure Mean 125 111 Pulse Ox 94 95 Oxygen Delivery Method Room Air Weight Weight: 116.12 kg Body Mass Index (BMI) 42.5 Physical Exam Narrative Physical exam: General: Well-nourished, well-developed. Head: Normocephalic, atraumatic, no tenderness Eyes: PERRLA, EOMI ENT, no trauma, moist mucous membranes, no rhinorrhea Neck: Nontender, full range of motion, no spinal tenderness, deformities, step- off CVS: Regular rate and rhythm. S1-S2 present. No murmur, gallop or rub. Respiratory : clear to auscultation bilaterally, chest wall nontender, no wheezing Abdomen: Soft, nontender, nondistended, normal bowel sounds, no masses. Colostomy present : Deferred Extremities: Nontender full range of motion, no trauma Skin: Normal color, no trauma, abrasions Neuro: Alert, oriented, cranial nerves II through XII grossly intact. Psychiatry: Normal mood. Normal affect. Not depressed. Not anxious. Results Lab / Micro Data Result Diagrams: 03/03/21 17:00 03/03/21 17:00 Labs: Laboratory Results - last 24 hr 03/03/21 17:00: WBC 5.7, RBC 3.57 L, Hgb 10.5 L, Hct 31.9 L, MCV 89.4, MCH 29.4, MCHC 32.9, RDW Std Deviation 55.5 H, RDW Coeff of Arvind 17.1 H, Plt Count 350, MPV 10.6, Immature Gran % (Auto) 0.400, Neut % (Auto) 59.2, Lymph % (Auto) 24.2, [place] % (Auto) 12.3 H, Eos % (Auto) 3.0, Baso % (Auto) 0.9, Absolute Neuts (auto) 3.4, Absolute Lymphs (auto) 1.38, Nucleated RBC % 0 03/03/21 17:00: Sodium 141, Potassium 2.9 L, Chloride 102, Carbon Dioxide 35.0 H , Anion Gap 4 L, BUN 3 L, Creatinine 0.73, Estim Creat Clear Calc 47.10, Est GFR (MDRD) Af Amer 101, Est GFR (MDRD) Non-Af 83, BUN/Creatinine Ratio 4.1 L, Glucose 96, Calcium 9.0, Troponin I High Sens 25 03/03/21 19:15: Troponin I High Sens 45 Radiology Impression Chest X-Ray 03/03/21 17:53 IMPRESSION: No acute cardiopulmonary process. Electronically Signed: Manny Urias MD ([place]) at 18:11 EST , Service support , Assessment & Plan Assessment/Plan (1) Hypertensive urgency: PLAN: Hypertensive urgency Chest x-ray showed no acute cardiopulmonary process I agree with radiologist interpretation. EKG independent interpretation showed some flattening of T waves Highest systolic blood pressure was 206. Highest diastolic blood pressure was 89. Received labetalol IV boluses at the emergency department. Labetalol IV boluses are continued with goal to keep systolic blood pressure to less than 160. Patient is on home lisinopril?hydrochlorothiazide 10 mg - 12.5 mg daily. Will give a one-time dose of lisinopril 10 mg now and will escalate patient's lisinopril hydrochlorothiazide combo to 20 mg - 12.5 mg daily. Of note patient has hypokalemia. Trend blood pressure and adjust blood pressure medication as necessary. Hypokalemia Review of labs showed potassium of 2.9. Received 40 mEq dose of potassium chloride emergency department. Will give additional 40 mEq. Will trend BMP. Hypothyroidism Synthroid continued GERD Depression continue. Back pain Home [place] continued. DVT prophylaxis: SCD ordered. Charges/Coding Visit Charges OBSV E&M: 48478 Initial observation care L3
[2021-03-03] MEDS: Aspirin 81 MG TAB.CHEW 324 MG PO (20:16)
--- NOTE | 2021-03-03 20:28 | ED.RN ---
CALLED PHARMACY BECAUSE LABETOLOL NOT STOCKED IN ACCUDOSE.
[2021-03-03] MEDS: Labetalol (Prefilled) 20 MG/4 ML IV (20:40)
--- NOTE | 2021-03-03 21:02 | EKG12_ITS ---
Test Reason : ADM EKG Blood Pressure : / mmHG Vent. Rate : 062 BPM Atrial Rate : 062 BPM P-R Int : 166 ms QRS Dur : 086 ms QT Int : 384 ms P-R-T Axes : 002 003 047 degrees QTc Int : 389 ms Normal sinus rhythm Nonspecific ST and T wave abnormality Abnormal ECG When compared with ECG of 03-MAR-2021 16:38, MANUAL COMPARISON REQUIRED, DATA IS UNCONFIRMED Confirmed by MURRAY LOWE, JN ([id number]), food editor PATRICK RANDALL ([id number]) on 03/04/2021 2:02:12 PM Referred By: JEVON Confirmed By:JN GAO MD
[2021-03-03] MEDS: Acetaminophen 325 MG Tablet 650 MG PO (22:02)
[2021-03-03] MEDS: Lisinopril 10 MG Tablet PO (22:02)
[2021-03-04 00:06] LABS: Troponin-I HS 64 pg/mL (3.0-54.0)
[2021-03-04] MEDS: HYDROcodone Bitartrate/Apap 5/325 Tablet PO (00:22)
[2021-03-04 00:24] VITALS: BP 174/88; PULSE 57; RESP 16; TEMP 37; O2SAT 93
[2021-03-04] MEDS: Labetalol (Prefilled) 20 MG/4 ML 10 MG IV ×2 (00:29→06:11)
[2021-03-04] MEDS: 0.9% Saline Lock 10 ML Syringe IV (00:30)
[2021-03-04 02:49] VITALS: BP 162/69; PULSE 58; RESP 18; TEMP 37; O2SAT 95
[2021-03-04] MEDS: Potassium Chloride Oral Tablet 20 MEQ 40 MEQ PO ×2 (02:50→10:21)
[2021-03-04] MEDS: Levothyroxine 75 MCG Tablet PO (06:09)
[2021-03-04 06:12] VITALS: BP 167/76
[2021-03-04 06:59] LABS: Anion Gap 9 (5-15); BUN 3 mg/dL (7-18); BUN/Creat Ratio 4.9 RATIO (10-20); Calcium,Total 8.4 mg/dL (8.5-10.1); Chloride 104 mmol/L (98-107); Creatinine, Serum 0.62 mg/dL (0.55-1.02); EST Glomerular Filtration Rate 102 mL/min (>60); Est Glom Filt Rate - Afr Amer 123 mL/min (>60); Glucose 92 mg/dL (74-106); Potassium 2.6 mmol/L (3.5-5.1); Sodium Level 144 mmol/L (136-145)
[2021-03-04 07:47] VITALS: PULSE 50
--- NOTE | 2021-03-04 07:55 | ECHOD_ITS ---
Reason For Study: HTN Procedure This was a 2D Doppler, Color Flow transthoracic echocardiogram. Exam performed portable in patient room. Left Ventricle Normal LV size. Left ventricular systolic function is normal. The estimated ejection fraction is 60 %. No regional wall motion abnormalities noted. Right Ventricle Normal RV size. Normal systolic function. Atria The left atrium is mildly enlarged. Normal right atrium. Mitral Valve Normal mitral valve. Mild-Moderate (1-2+) eccentric mitral valve insufficiency. Tricuspid Valve Normal tricuspid valve. Moderate (2+) tricuspid valve insufficiency. Moderate pulmonary hypertension. Pulmonary artery systolic pressure is 65 mmHg. Aortic Valve Trisinus/trileaflet aortic valve. Pericardium/Pleural No pericardial effusion. MMode/2D Measurements & Calculations LVIDd: 5.5 cm IVSd: 0.89 cm Ao root diam: 2.9 cm LVIDs: 3.4 cm LVPWd: 0.70 cm LA dimension: 4.5 cm RVDd: 3.9 cm FS: 38.8 % LAV(MOD-bp): 74.8 ml LA A4 area: 24.0 cm2 RA A4 area: 20.6 cm2 LAV(MOD-bp) Indexed: 36.8 ml/m2 LAV(MOD-sp2): 78.0 ml LAV(MOD-sp4): 71.2 ml Time Measurements MV dec time: 0.15 sec Doppler Measurements & Calculations MV E max james: 110.5 cm/sec Lat Peak E' James: 8.9 cm/sec Med Peak E' James: 7.7 cm/sec MV A max james: 87.9 cm/sec E/E' lat: 12.4 E/E' med: 14.3 MV E/A: 1.3 MV V2 max: 113.9 cm/sec MV P1/2t max james: 114.7 cm/sec Ao V2 max: 142.7 cm/sec MV max P.2 mmHg MV P1/2t: 86.7 msec Ao max P.1 mmHg MV V2 mean: 69.3 cm/sec MV mean P.1 mmHg MV dec slope: 387.4 cm/sec2 MV V2 VTI: 35.6 cm MVA(P1/2t): 2.5 cm2 LV V1 max: 113.1 cm/sec PA V2 max: 91.5 cm/sec TR max james: 391.0 cm/sec LV V1 max P.1 mmHg TR max P.1 mmHg ECHO/Echo Complete Interpretation Summary The left atrium is mildly enlarged. Normal LV size. Left ventricular systolic function is normal. The estimated ejection fraction is 60 %. Mild-Moderate (1-2+) eccentric mitral valve insufficiency. Pulmonary artery systolic pressure is 65 mmHg. Ordering Physician: Fallon Wiggins Referring Physician: NO PCP NOTED Performed By: Baljit Solis RCS
[2021-03-04 10:09] LABS: Lipase 38 U/L (73-393)
[2021-03-04 10:13] VITALS: BP 170/63; PULSE 60; RESP 18; TEMP 36.8; O2SAT 94
[2021-03-04] MEDS: Aspirin E.C. 81 MG Tablet PO (10:16)
[2021-03-04] MEDS: Cholecalciferol (VIT D3) 25 MCG TABLET (1,000 UNITS) PO (10:16)
[2021-03-04] MEDS: Pantoprazole Sodium 40 MG Tablet PO (10:16)
[2021-03-04] MEDS: Lisinopril 40 MG Tablet PO (10:21)
--- NOTE | 2021-03-04 10:44 | PCM.DC ---
Discharge Instructions Diet Discharge Diet: No restrictions Activity Discharge Activity: Return to Normal Activity Weight Bearing Status: Weight bearing as tolerated Dressing / Incision Call your doctor if you observe: Fever of 101 or Higher, Numbness or Tingling, Shortness of breath, Dizziness, Chest pain, Increased palpitations (irregular heartbeat) and Calf discomfort Follow Up Care Please Follow Up With: Primary care provider When: Within the next two weeks. Test Results: Test results from this visit will be discussed in further detail at your follow-up appointment, if applicable. Discharge Plan Admission Admit Date/Time: 03/03/21 20:07 Primary Reason for Your Visit: Hypertensive urgency Attending Provider: Fallon Wiggins Primary Care Provider: Care Physician,No Primary Instructions Additional Instructions / Restrictions: *Obtain recheck of your blood pressure at your doctor's office on 03/09/2021. Discharge Orders/Prescriptions Prescriptions: New lisinopril 40 mg tablet 40 mg PO DAILY Qty: 30 RF: 0 Continued levothyroxine 75 MCG tablet 75 mcg PO DAILY RF: 0 cholecalciferol (vitamin D3) [Vitamin D3] 1,000 UNIT tablet 1,000 unit PO DAILY RF: 0 hydrocodone-acetaminophen 1 TABLET tablet 1 tab PO Q6H PRN PRN (Reason: Pain) 3 Days Qty: 10 RF: 0 omeprazole 40 mg capsule,delayed release(DR/EC) 40 mg PO DAILY RF: 0 Discontinued lisinopril-hydrochlorothiazide 10-12.5 mg tablet 1 tab PO DAILY RF: 0 amoxicillin-pot clavulanate [amoxicillin-pot clavulanate] 875 MG tablet 875 mg PO Q12H Qty: 20 RF: 0 Referrals / Follow Up: Tommy Cardona MD [NON-STAFF] - Within 2 Weeks Disposition Disposition (needs filled in before D/C Order can be placed): Home, Self Care
--- NOTE | 2021-03-04 11:53 | CASEMGMT ---
RN CM NOTE: Pt being discharged home. RN CM to room to talk w/pt and Sig other @ bedside. Introduced self and role of RN CM. Pt denies having any concerns or needs re: discharge or home-going needs. Cody BSN RN CM
[2021-03-04 13:36] VITALS: BP 172/79; PULSE 62; RESP 16; TEMP 36.9; O2SAT 97
--- NOTE | 2021-03-04 13:38 | PCM.DC.SUM ---
Documented by User: Madi BAUGH 03/04/21 13:52 Providers Date of Admission: 03/03/21 Primary Care Physician: No Primary Care Phys Reason For Visit: HYPERTENSIVE URGENCY Diagnosis Discharge Diagnosis (1) Hypertensive urgency: Status: Acute Code(s): I16.0 - Hypertensive urgency Medications at Discharge Home Medications levothyroxine 75 mcg PO DAILY 11/25/16 cholecalciferol (vitamin D3) [Vitamin D3] 1,000 unit PO DAILY 12/17/17 hydrocodone-acetaminophen 1 tab PO Q6H PRN PRN 3 Days #10 tablet 12/21/20 omeprazole 40 mg PO DAILY 03/03/21 lisinopril 40 mg PO DAILY #30 tab 03/04/21 Hospital Course Procedures 2-D Echocardiogram and Transthoracic echo Summary of Care Provided Minutes Spent on Discharge: 35 Hospital Course: Patient is a 70-year-old female who was admitted to the hospital on 03/03/2021 for hypertensive urgency and hypokalemia. Patient admits to a recent history of having difficulty with controlling her blood pressure and that she has had some medication changes. Also, patient reports that she has been having ongoing difficulty with weight gain and swelling since recent surgery in January. Patient denies any history any cardiac history to include heart failure or sleep apnea. Echocardiogram obtained on 03/04 demonstrated mildly enlarged left atrium, normal LV size and systolic function, an estimated EF of 60% and a pulmonary artery systolic pressure of 65 mmHg. Given patient's elevated pulmonary artery systolic pressure in the setting of high blood pressure, patient is to obtain outpatient sleep study for evaluation of sleep apnea. Patient's combination lisinopril/hydrochlorothiazide was discontinued, given acute hypokalemia, and patient was discharged on Lasix 40 mg p.o. daily. Patient is to obtain outpatient sleep study and follow-up with her primary care provider within the next 2 weeks. Patient seen by Madi Melendez PA-C, under the supervision of Dr. Wiggins. Physical Exam Narrative Patient is a 70-year-old female comfortably resting in bed, alert and oriented x3. Patient still does report a bandlike discomfort around her epigastric region, which has not worsened since admission. Patient denies development of any new symptoms overnight. Does not appear in acute distress. Const alert, oriented x3 and no apparent distress HEENT normocephalic, head/scalp atraumatic and hearing grossly normal bilaterally Eyes PERRL, EOMs intact bilaterally and conjunctivae normal Neck no lymphadenopathy, supple and no JVD Resp normal respiratory effort, no retractions, no use of accessory muscles and clear to auscultation bilaterally Cardio regular rate, regular rhythm, no murmurs and no JVD GI normal to inspection, nondistended, normoactive bowel sounds, soft to palpation and non-tender Extremity normal to inspection, full ROM and no clubbing, cyanosis or edema Skin no rashes or lesions noted, no wounds and skin turgor normal Neuro CN's II-XII intact bilaterally Psych affect normal Weight / BMI Weight Weight: 213 lb 4.753 oz Body Mass Index (BMI) 35.4 ABG / Lab / Microbiology Data Result Diagrams: 03/03/21 17:00 03/04/21 04:48 Laboratory: Laboratory Results - last 24 hr 03/03/21 17:00: WBC 5.7, RBC 3.57 L, Hgb 10.5 L, Hct 31.9 L, MCV 89.4, MCH 29.4, MCHC 32.9, RDW Std Deviation 55.5 H, RDW Coeff of Arvind 17.1 H, Plt Count 350, MPV 10.6, Immature Gran % (Auto) 0.400, Neut % (Auto) 59.2, Lymph % (Auto) 24.2, Sunflower % (Auto) 12.3 H, Eos % (Auto) 3.0, Baso % (Auto) 0.9, Absolute Neuts (auto) 3.4, Absolute Lymphs (auto) 1.38, Nucleated RBC % 0 03/03/21 17:00: Sodium 141, Potassium 2.9 L, Chloride 102, Carbon Dioxide 35.0 H, Anion Gap 4 L, BUN 3 L, Creatinine 0.73, Estim Creat Clear Calc 47.10, Est GFR (MDRD) Af Amer 101, Est GFR (MDRD) Non-Af 83, BUN/Creatinine Ratio 4.1 L, Glucose 96, Calcium 9.0, Troponin I High Sens 25 03/03/21 19:15: Troponin I High Sens 45 03/03/21 23:19: Troponin I High Sens 64 H 03/04/21 04:48: Sodium 144, Potassium 2.6 L*, Chloride 104, Carbon Dioxide 31.0, Anion Gap 9, BUN 3 L, Creatinine 0.62, Estim Creat Clear Calc 47.10, Est GFR (MDRD) Af Amer 123, Est GFR (MDRD) Non-Af 102, BUN/Creatinine Ratio 4.9 L, Glucose 92, Calcium 8.4 L 03/04/21 04:48: Lipase 38 L Radiography Diagnostic Testing: Radiology Impression Chest X-Ray 03/03/21 17:53 IMPRESSION: No acute cardiopulmonary process. Electronically Signed: Manny Urias MD ([place]) at 18:11 EST , Service support , Echocardiogram 03/04/21 07:55 Interpretation Summary The left atrium is mildly enlarged. Normal LV size. Left ventricular systolic function is normal. The estimated ejection fraction is 60 %. Mild-Moderate (1-2+) eccentric mitral valve insufficiency. Pulmonary artery systolic pressure is 65 mmHg. Ordering Physician: Fallon Wiggins Referring Physician: NO PCP NOTED Performed By: Baljit Solis RCS D/C Instructions Discharge Diet: No restrictions Weight Bearing Status: Weight bearing as tolerated Call your doctor if you observe: Fever of 101 or Higher, Numbness or Tingling, Shortness of breath, Dizziness, Chest pain, Increased palpitations (irregular heartbeat) and Calf discomfort Please Follow Up With: Primary care provider When: Within the next two weeks. Meaningful Use Info Meaningful Use Diagnoses (Choose all that apply): None applicable Discharge Plan Admission Admit Date/Time: 03/03/21 20:07 Primary Reason for Your Visit: Hypertensive urgency Attending Provider: Fallon Wiggins Primary Care Provider: Care Physician,No Primary Instructions Additional Instructions / Restrictions: *Obtain recheck of your blood pressure at your doctor's office on 03/09/2021. *Obtain outpateint sleep study for investigation into sleep apnea. Discharge Orders/Prescriptions Prescriptions: New lisinopril 40 mg tablet 40 mg PO DAILY Qty: 30 RF: 0 Continued levothyroxine 75 MCG tablet 75 mcg PO DAILY RF: 0 cholecalciferol (vitamin D3) [Vitamin D3] 1,000 UNIT tablet 1,000 unit PO DAILY RF: 0 hydrocodone-acetaminophen 1 TABLET tablet 1 tab PO Q6H PRN PRN (Reason: Pain) 3 Days Qty: 10 RF: 0 omeprazole 40 mg capsule,delayed release(DR/EC) 40 mg PO DAILY RF: 0 Discontinued lisinopril-hydrochlorothiazide 10-12.5 mg tablet 1 tab PO DAILY RF: 0 amoxicillin-pot clavulanate [amoxicillin-pot clavulanate] 875 MG tablet 875 mg PO Q12H Qty: 20 RF: 0 Other Ambulatory Orders: Polysomnography (Routine) Facility: [facility] - Location: [facility] Ordered By: Madi BAUGH Referrals / Follow Up: Tommy Cardona MD [NON-STAFF] - Within 2 Weeks Disposition Disposition (needs filled in before D/C Order can be placed): Home, Self Care Documented by User: Dr. Fallon Wiggins DO 03/04/21 16:20 Providers Date of Admission: 03/03/21 Reason For Visit: HYPERTENSIVE URGENCY Medications at Discharge Home Medications levothyroxine 75 mcg PO DAILY 11/25/16 cholecalciferol (vitamin D3) [Vitamin D3] 1,000 unit PO DAILY 12/17/17 hydrocodone-acetaminophen 1 tab PO Q6H PRN PRN 3 Days #10 tablet 12/21/20 omeprazole 40 mg PO DAILY 03/03/21 lisinopril 40 mg PO DAILY #30 tab 03/04/21 Hospital Course Operations None Procedures 2-D Echocardiogram Summary of Care Provided Minutes Spent on Discharge: 33 Hospital Course: Mrs. Ponce is a 70-year-old white female who presented to the emergency department with elevated blood pressure. The patient recently was admitted to [facility] for an intra-abdominal infection that resulted in her having an appendectomy and a colostomy performed. She had been healing well from this and having home health services. Evidently 4 days prior to her presentation her systolic blood pressure was checked by home health and was found to be 189 and she measured her blood pressure yesterday and it was 193/95. Home health called her PCP and the patient was instructed to come to the emergency department. She had been on lisinopril hydrochlorothiazide at higher doses but these were recently cut in half because her blood pressure had been on the lower side. She had significant swelling while she was at outside hospital but this has since resolved. She has no significant headache or chest pain. Her only subjective complaint was bandlike epigastrium pain that occurred when she was eating and resolved in between. We did assess her lipase to rule out any pancreatitis and this was normal. She was able to eat on the day of discharge without any difficulty. Given her marked blood pressure elevation an echocardiogram was performed and showed an EF of 60%, mild to moderate eccentric mitral valve insufficiency and pulmonary artery systolic pressure of 65 mmHg. At home she was on lisinopril 10 mg with HCTZ 12.5 mg and a combination pill she was found to be markedly hypokalemic on admission at 2.9 with a follow-up of 2.6 and was given 40 mill equivalents x2 doses prior to discharge. She indicated upon my interview with her that she has had issues with hypokalemia in the past and therefore we discontinued her hydrochlorothiazide. On discharge we increased her lisinopril to 40 mg daily and instructed her to follow-up with her PCP for blood pressure check early next week as well as a follow-up visit with him in 2 weeks for hospital follow-up. I also feel that she would benefit from an outpatient polysomnography and this was set up for her as well. This may be contributing to her hypertension and is most likely contributing to her pulmonary artery hypertension found on her echocardiogram. Prescriptions were written and faxed to her pharmacy. She was discharged on 03/04/2021 in stable condition. Discharge diagnoses: Elevated blood pressures with history of hypertension Hypokalemia Hypothyroidism Vitamin D deficiency GERD Recent appendectomy with colostomy-stable Obesity Pulmonary artery hypertension who group 3 Suspected obstructive sleep apnea Physical Exam Const alert, oriented x3 and no apparent distress Constitutional Narrative: Obese white female sitting up in bed, appears comfortable, nontoxic General Appearance: cooperative, comfortable, well kempt and well developed Orientation / Consciousness: awake Exam Limitations: no limitations Nutritional Appearance: obese HEENT normocephalic, head/scalp atraumatic, hearing grossly normal bilaterally and moist oral mucous membranes HEENT Narrative: Mallampati 3, no thrush, fair dentition Eyes PERRL, EOMs intact bilaterally and conjunctivae normal Eyes Narrative: No scleral icterus Neck no lymphadenopathy, supple and no JVD Neck Narrative: Trachea midline, no thyroid enlargement Resp normal respiratory effort, no retractions, no use of accessory muscles and clear to auscultation bilaterally Auscultation: Negative for crackles, rales, rhonchi or wheezes Cardio regular rate, regular rhythm, S1 normal heart sound, S2 normal heart sound, no murmurs, no rub, no gallops, no clicks and no JVD GI normal to inspection, nondistended, normoactive bowel sounds, soft to palpation, non-tender and non-distended GI Narrative: Well-healing midline incision with no signs of drainage or infection, no erythema, ostomy bag left lower quadrant with good output of brown stool Extremity normal to inspection and no clubbing, cyanosis or edema Skin no rashes or lesions noted, no wounds, skin turgor normal and no jaundice Neuro oriented x3, CN's II-XII intact bilaterally, moves all extremities and no focal motor deficits Sensorium / Orientation: awake and alert Speech: speech normal Motor Exam: strength 5/5 throughout Psych affect normal ABG / Lab / Microbiology Data Result Diagrams: 03/03/21 17:00 03/04/21 04:48 Discharge Plan Admission Admit Date/Time: 03/03/21 20:07 Primary Reason for Your Visit: Hypertensive urgency Attending Provider: Fallon Wiggins Primary Care Provider: Care Physician,No Primary Instructions Additional Instructions / Restrictions: *Obtain recheck of your blood pressure at your doctor's office on 03/09/2021. *Obtain outpateint sleep study for investigation into sleep apnea. Discharge Orders/Prescriptions Prescriptions: New lisinopril 40 mg tablet 40 mg PO DAILY Qty: 30 RF: 0 Continued levothyroxine 75 MCG tablet 75 mcg PO DAILY RF: 0 cholecalciferol (vitamin D3) [Vitamin D3] 1,000 UNIT tablet 1,000 unit PO DAILY RF: 0 hydrocodone-acetaminophen 1 TABLET tablet 1 tab PO Q6H PRN PRN (Reason: Pain) 3 Days Qty: 10 RF: 0 omeprazole 40 mg capsule,delayed release(DR/EC) 40 mg PO DAILY RF: 0 Discontinued lisinopril-hydrochlorothiazide 10-12.5 mg tablet 1 tab PO DAILY RF: 0 amoxicillin-pot clavulanate [amoxicillin-pot clavulanate] 875 MG tablet 875 mg PO Q12H Qty: 20 RF: 0 Other Ambulatory Orders: Polysomnography (Routine) Facility: [facility] - Location: [facility] Ordered By: Madi BAUGH Referrals / Follow Up: Tommy Cardona MD [NON-STAFF] - Within 2 Weeks Disposition Disposition (needs filled in before D/C Order can be placed): Home, Self Care Charges/Coding Visit Charges Inpatient E&M: 73952 Disch Hosp
== END 2021-03-04 10:40 | disposition home or self-care (01) ==
LOC: ED 19:50 → PCU 20:18
PROVIDERS: Physician Assistant; Admitting Provider Hospitalist; Emergency Provider Emergency Medicine; Visit Provider Internal Medicine
DX: I16.0 Hypertensive urgency (principal); R07.89 Other chest pain; K21.9 Gastro-esophageal reflux disease without esophagitis; I10 Essential (primary) hypertension; E87.6 Hypokalemia; E03.9 Hypothyroidism, unspecified; M54.9 Dorsalgia, unspecified; I27.21 Secondary pulmonary arterial hypertension; E66.9 Obesity, unspecified; E55.9 Vitamin D deficiency, unspecified; Z79.899 Other long term (current) drug therapy; Z93.3 Colostomy status; Z87.891 Personal history of nicotine dependence; Z79.890 Hormone replacement therapy; Z68.35 Body mass index [BMI] 35.0-35.9, adult
CPT/HCPCS: 36415; 71045; 80048; 83690; 84484; 85025; 93005; 93306; 96374; 96376; 99218; 99285; Q9957; A4216; G0378; J3490

== ENCOUNTER → 2023-01-20 | Outpatient (CLI) | payer MEDICARE, BC, SELFPAY ==
[2023-01-20 12:42] LABS: Vitamin D,25 Hydroxy 39.9 ng/mL
[2023-01-20 13:17] LABS: ALB/GLOB Ratio 0.8 RATIO (0.9-2.4); AST(SGOT) 20 U/L (15-37); Alanine Aminotransfer ALT/SGPT 27 U/L (13-56); Albumin, Serum 3.5 g/dL (3.2-5.0); Alkaline Phosphatase 87 U/L (45-117); Anion Gap 6 (5-15); BUN 17 mg/dL (7-18); BUN/Creat Ratio 16.8 RATIO (10-20); Calcium,Total 9.4 mg/dL (8.5-10.1); Chloride 104 mmol/L (98-107); Creatinine, Serum 1.01 mg/dL (0.55-1.02); EST Glomerular Filtration Rate 57 mL/min (>60); Est Glom Filt Rate - Afr Amer 69 mL/min (>60); Globulin 4.6 g/dL (2.2-4.2); Glucose 110 mg/dL (74-106); Potassium 3.4 mmol/L (3.5-5.1); Protein, Total 8.1 g/dL (6.4-8.2); Sodium Level 139 mmol/L (136-145)
== END | disposition home or self-care (01) ==
PROVIDERS: PCP Family Medicine; Referring Provider Podiatrist; Visit Provider Podiatrist
DX: E55.9 Vitamin D deficiency, unspecified (principal)
CPT/HCPCS: 36415; 80053; 82306

== ENCOUNTER → 2023-01-25 | Outpatient (CLI) | payer MEDICARE, BC, SELFPAY ==
--- NOTE | 2023-01-25 | FLU_PTH ---
PATIENT: PATRICIA BHAGAT LOC: [facility] U#:[id number] AGE/SX: 72/F ROOM: RE01/25/[address]: Dr. Bob Benoit MD : 1950 BED: DIS: 01/25/2023 SPEC #: [id number] RECD: 01/25/23 10:30 STATUS: DUNIA REQ #: [id number] SHAINA: 01/25/23 00:[address]: Bob Benoit DEPT: CYTOLOGY RECD BY: Rell Pena ENTERED: 01/25/23 11:34 SP TYPE: Fluid OTHR DR: Dr. Tommy Cardona MD Tissues: A - Thyroid gland, NOS B - Thyroid gland, NOS Procedures: Gen Path Consultation (on slides) Special Stain Group II Surgery Specimen Level IV Cytospin Fluid Comments: This report has been corrected due to routine QC review by the pathologists. Sent for second opinion. Change in DX. HEADER OPERATION: Fine needle aspiration of right thyroid PRE-OP DIAGNOSIS: Abnormal ultrasound TISSUE SUBMITTED: A - FNA of right thyroid fluid, B - FNA of right thyroid x10 slides DIAGNOSIS CYTOLOGY A. Right thyroid fluid, fine needle aspiration (cytospin and cell block): Negative for malignant cells. See cytology study and comment. B. Right thyroid, fine needle aspiration (smears): Benign. Consistent with chronic lymphocytic thyroiditis in the proper clinical context (Rialto Category?II). Adequate for evaluation. See cytology study and comment. SJ:timothy 01/26/2023 COMMENT Correlation with clinical, radiologic findings and appropriate follow up are necessary. The Rialto System for thyroid diagnostic categorization was used in the evaluation of this case. CYTOLOGY STUDY Slides are reviewed. A. The specimen is paucicellular and consists of rare benign follicular cells and Hurthle cells. B. The specimen consists of benign follicular cell, Hurthle cells and numerous small lymphocytes. Significant atypia is not seen. CYTOLOGY GROSS A - Received is 30 ml of light norris cloudy fluid labeled with the patient's name and and designated per the requisition as right thyroid. Submitted for cytology preparation including cell block. B - Received are ten smears labeled with the patient's name and designated per the requisition as right thyroid. Submitted for staining. / timothy 01/25/2023 TC:3 CPT: 88925 x2, 88314 ADDENDUM ADDENDUM ADDENDUM ADDENDUM ADDENDUM ADDENDUM ADDENDUM ADDENDUM ADDENDUM ADDENDUM ADDENDUM ADDENDUM ADDENDUM 02/01/2023 09:20 ADDENDUM 02/01/2023 09:20 ADDENDUM 02/01/2023 09:20 ADDENDUM 02/01/2023 09:20 ADDENDUM 02/01/2023 09:20 This addendum is added to incorporate an outside pathology consultation report (second opinion). The case was examined at [facility] (#[id number]) and the following diagnosis was rendered. A. Right thyroid, fine needle aspiration: Benign (Rialto II). Consistent with lymphocytic thyroiditis. B. Right thyroid, fine needle aspiration: Benign (Rialto II). Consistent with lymphocytic thyroiditis. Please see complete above mentioned consultation report in EMR
== END | disposition home or self-care (01) ==
LOC: LABSPEC 10:35
PROVIDERS: PCP Family Medicine; Visit Provider Surgery
DX: E06.3 Autoimmune thyroiditis (principal)
CPT/HCPCS: 88108; 88305; 88313; 88325

== ENCOUNTER → 2023-03-07 | Outpatient (CLI) | payer MEDICARE, BC, SELFPAY ==
--- NOTE | 2023-03-07 12:38 | MRI_ITS ---
EXAM: MR LEFT LOWER EXTREMITY WITHOUT INTRAVENOUS CONTRAST, FOOT CLINICAL INDICATION: STRESS FX TECHNIQUE: Multiplanar and multisequence MR images of the left foot without intravenous contrast. COMPARISON: December 17, 2018 x-ray foot FINDINGS: LIGAMENTS: MEDIAL COLLATERAL: Unremarkable. Intact. LATERAL COLLATERAL: Unremarkable. Intact. LISFRANC: Unremarkable. Intact. TENDONS: FLEXOR: Unremarkable. Intact. EXTENSOR: Unremarkable. Intact. PERONEAL: Unremarkable. Intact. TIBIALIS ANTERIOR: Unremarkable. Intact. TIBIALIS POSTERIOR: Unremarkable. Intact. MUSCLES: Unremarkable. No edema or myositis. FLUID: Unremarkable. No organized fluid collections. PLANTAR FASCIA: Unremarkable. Intact. BONES/JOINTS: Unremarkable. Normal forefoot alignment. No fracture. No joint effusion. No unusual bone marrow signal alterations. OTHER SOFT TISSUES: Dorsal subcutaneous edema involving the forefoot and midfoot. MRI/Lower Ext/No Jt/w/o IMPRESSION: No MR evidence for recent stress fracture. Nonspecific dorsal subcutaneous edema involving the visualized foot. No other significant internal derangement. Electronically Signed: Kong Lopez MD at 0:07 EST ,
== END | disposition home or self-care (01) ==
LOC: MRI 12:26
PROVIDERS: PCP Family Medicine; Referring Provider Podiatrist; Visit Provider Podiatrist
DX: M84.375D Stress fracture, left foot, subsequent encounter for fracture with routine healing (principal); M79.672 Pain in left foot
CPT/HCPCS: 73718

== ENCOUNTER → 2023-03-08 | Outpatient (CLI) | payer MEDICARE, BC, SELFPAY ==
--- NOTE | 2023-03-08 13:01 | VDLE_ITS ---
Reason For Study: Left leg swelling RIGHT LEFT GSV is normal. GSV is normal. CFV is compressible, spontaneous, phasic, CFV is compressible, spontaneous, phasic, competent and demonstrates normal competent, and demonstrates normal augmentation. augmentation. FV is compressible, spontaneous, phasic, FV is compressible, spontaneous, phasic, competent and demonstrates normal competent and demonstrates normal augmentation. augmentation. POP V is compressible, spontaneous, phasic, POP V is compressible, spontaneous, phasic, competent and demonstrates normal competent and demonstrates normal augmentation. augmentation. T/P Trunk is compressible. T/P Trunk is compressible. PTV is compressible. PTV is compressible. RT PerV is compressible. LT PerV is compressible. Procedure This is a venous duplex using B-mode, color flow and spectral Doppler. Exam performed in department. A preliminary report was called and/or faxed to Dr. Fraser. VL/Venous Duplex US - Andres Extrem Interpretation Summary No evidence for acute deep venous thrombosis bilateral lower extremities with p atent and compressible bilateral great saphenous veins. Ordering Physician: Temo Fraser Referring Physician: Tommy Cardona Performed By: Mile Platt RVT
== END | disposition home or self-care (01) ==
LOC: CVS 13:00
PROVIDERS: PCP Family Medicine; Referring Provider Podiatrist; Visit Provider Podiatrist
DX: M79.89 Other specified soft tissue disorders (principal)
CPT/HCPCS: 93970

== ENCOUNTER → 2023-09-13 | Outpatient (CLI) | payer MEDICARE, BC, SELFPAY ==
--- NOTE | 2023-09-13 13:54 | US_ITS ---
STUDY: RENAL ULTRASOUND - COMPLETE REASON FOR EXAM: Female, 72 years old. UTI TECHNIQUE: Ultrasound evaluation of the kidneys was performed with real-time and static tate-scale imaging. COMPARISON: None. FINDINGS: RIGHT KIDNEY: Normal location of the right kidney, which is normal in size. The right kidney measures 10.6 cm x 4.2 cm x 5 cm. There is a normal cortex of the right kidney. The renal cortex measures 1.3 cm. There is no right renal mass or cyst. There are no right renal calculi. There is no right hydronephrosis. DISTAL RIGHT URETER: There is non-visualization of the distal right ureter. There is no demonstrated right ureterovesical junction calculus. There is a visualized right ureteral jet. LEFT KIDNEY: Normal location of the left kidney, which is normal in size. The left kidney measures 10.9 cm x 5.2 cm x 4.9 cm. There is a normal cortex of the left kidney. The renal cortex measures 1.3 cm. There is no left renal mass or cyst. There are no left renal calculi. There is no left hydronephrosis. DISTAL LEFT URETER: There is non-visualization of the distal left ureter. There is no demonstrated left ureterovesical junction calculus. There is a visualized left ureteral jet. BLADDER: The distended urinary bladder has a volume of 200 ml. There is a normal wall thickness of the distended urinary bladder. There is no demonstrated mass within the urinary bladder. There are no demonstrated bladder calculi. US/Kidney and Bladder IMPRESSION: Normal ultrasound of the kidneys and urinary bladder. Electronically Signed: Celso Churchill MD at 15:19 EDT ,
== END | disposition home or self-care (01) ==
PROVIDERS: PCP Family Medicine; Referring Provider Urology; Visit Provider Urology
DX: N39.0 Urinary tract infection, site not specified (principal)
CPT/HCPCS: 76770

== ENCOUNTER 2025-01-10 08:12 | Day surgery (SDC) | payer MEDICARE, BC, SELFPAY ==
--- NOTE | 2025-01-03 17:53 | PAT.ANE_ITS ---
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 When Was Last Pacemaker Check QUESTION #4 FULL TEXT: You/Your Family Experience fever (hyperthermia) with Anesthesia Last Oral Intake Last Oral intake: Last Oral Intake NPO since Meds taken in AM with sips of water? Meds patient instructed to take am of surgery PONV PONV - qa automation engineer: PONV - qa automation engineer Female Yes 01/03/25 14:26 HX of Motion Sickness No 01/03/25 14:26 HX of N/V After Surgery No 01/03/25 14:26 Non-Smoker Yes 01/03/25 14:26 Duration of Surgery greater No 01/03/25 14:26 than 60 minutes Number of Risk Factors 2 01/03/25 14:26 PONV Score Moderate Risk 01/03/25 14:26 Height & Weight Height & Weight: Anesthesia: Height & Weight Height 5 ft 5 in 12/31/24 09:21 Respiratory Assessment Respiratory Assessment - qa automation engineer: Respiratory Tract Infection Hx - qa automation engineer Hx Respiratory Tract Infection No 01/03/25 14:26 STOP Sleep Apnea STOP Sleep Apnea - qa automation engineer: STOP Sleep Apnea - qa automation engineer Hx Hypertension Yes: CONTROLLED WITH MED 01/03/25 14:26 Hx Sleep Apnea No 01/03/25 14:26 CPAP BIPAP Do you snore loudly (louder No 01/03/25 14:26 than talking or can be heard Do you often feel tired/ No 01/03/25 14:26 fatigued/ sleepy during daytime? Has anyone observed you stop No 01/03/25 14:26 breathing during sleep? STOP Results Negative 01/03/25 14:26 QUESTION #5 FULL TEXT : Do you snore loudly (louder than talking or can be heard through closed doors)? 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 Specify any problems Hx of Preganancy in last 3 N/A 01/03/25 14:26 Months Nurse Filling Out Transfusion NBU[facility]ER 01/03/25 14:26 & Questions: Date: 01/03/25 01/03/25 14:26 Time: 14:27 01/03/25 14:26 Patient unable to answer at this time (ie. confused, unrespo /Reproduction History /Reproductive History - qa automation engineer: /Reproductive Hx- qa automation engineer Hx Now No 01/03/25 14:26 Gestational Age (in weeks): EDC: Hx Hx Para Hx Section SAB No 01/03/25 14:26 [facility] Medical History (Updated 01/03/25 @ 14:50 by Maria Elena Grimm) Arthritis Cluster headache History of diverticulitis Non-smoker History of echocardiogram History of stress test Cardiology follow-up encounter Intrinsic sphincter deficiency Vaginal atrophy Nocturia Mixed incontinence Overactive bladder Depression Hyperthyroidism Former smoker Hypertension GERD (gastroesophageal reflux disease) Diverticulitis Home Medications ?Medication ?Instructions ?Recorded ?Last Taken ?Type omeprazole 40 mg capsule,delayed 40 mg PO DAILY reflux 03/03/21 Unknown History release gabapentin 300 mg capsule 300 mg PO TID PRN pain 11/21 Unknown History hydrochlorothiazide 12.5 mg tablet 12.5 mg PO QDAY Unknown History magnesium oxide 400 mg (241.3 mg 400 mg PO BID 5 Unknown History magnesium) tablet potassium chloride 10 mEq 10 meq PO QDAY 11/21/24 Unkn own History tablet,extended release tirzepatide (weight loss) 15 15 mg subcut SA 11/21/24 12/22/24 History mg/0.5 mL subcutaneous pen injector (Zepbound) topiramate 25 mg tablet 25 mg PO BID PRN headache Unknown History trazodone 50 mg tablet 50 mg PO QHS PRN sleep 11/21 Unknown History vibegron 75 mg tablet (Gemtesa) 75 mg PO QDAY 11/21/24 Unknown History amlodipine 5 mg tablet 5 mg PO QDAY 12/31/24 Unknow n History ascorbic acid (vitamin C) 500 mg 1 g PO DAILY 01/03/25 Unknown History tablet (Vitamin C) cranberry 500 mg capsule 500 mg PO DAILY 01/03/25 Unk nown History Allergy/AdvReac Type Severity Reaction Status Date / Time adhesive tape Allergy skin falls Verified 01/03/25 14:22 off oxycodone AdvReac Other Verified 01/03/25 14:22 Family History Other Hypertension Surgical History History of colectomy History of hernia repair History of shoulder surgery History of hand surgery History of hysterectomy History of cholecystectomy History of colostomy reversal History of colostomy History of appendectomy Social History household members: significant other housing: house Smoking Status: Never smoker alcohol intake: current alcohol intake frequency: holidays/special occasions only substance use type: does not use Audit: Pertinent Findings Pertinent Findings EKG Perinent findings: 10/08/2024. Sinus bradycardia 51 bpm. Poor R wave progression may be secondary to pulmonary disease. Consider old anterior infarct. Echo (EF%) pertinent findings: October 02, 2024. EF of 50 to 55%. No aortic stenosis. No evidence of pulmonary hypertension. Recommendation Anesthesia Recommendation Anesthesia recommendation: OPTIMIZED for anesthesia
--- NOTE | 2025-01-08 13:24 | EKG12_ITS ---
Test Reason : PRE OP Blood Pressure : */* mmHG Vent. Rate : 56 BPM Atrial Rate : 56 BPM P-R Int : 166 ms QRS Dur : 84 ms QT Int : 440 ms P-R-T Axes : 54 -11 78 degrees QTcB Int : 424 ms Sinus bradycardia Low voltage QRS Borderline ECG Confirmed by MURRAY LOWE, JN ([id number]), art editor RAJWINDER SANDOVAL ([id number]) on 01/09/2025 8:59:15 AM Referred By: Celeste Tsang Confirmed By: JN GOA MD
[2025-01-08 14:06] LABS: Anion Gap 11 (5-15); BUN 28 mg/dL (4-19); BUN/Creat Ratio 29.2 RATIO (10-20); Calcium,Total 10.0 mg/dL (7.6-11.0); Carbon Dioxide 26.4 mmol/L (21.0-32.0); Chloride 100 mmol/L (98-108); Glucose 174 mg/dL (70-99); Potassium 3.9 mmol/L (3.3-5.1)
--- NOTE | 2025-01-08 16:01 | PAT.ANE_ITS ---
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 When Was Last Pacemaker Check QUESTION #4 FULL TEXT: You/Your Family Experience fever (hyperthermia) with Anesthesia Last Oral Intake Last Oral intake: Last Oral Intake NPO since Meds taken in AM with sips of water? 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: PONV - director of corporate marketing Female Yes 01/03/25 14:26 HX of Motion Sickness No 01/03/25 14:26 HX of N/V After Surgery No 01/03/25 14:26 Non-Smoker Yes 01/03/25 14:26 Duration of Surgery greater No 01/03/25 14:26 than 60 minutes Number of Risk Factors 2 01/03/25 14:26 PONV Score Moderate Risk 01/03/25 14:26 Height & Weight Height & Weight: Anesthesia: Height & Weight Height 5 ft 5 in 12/31/24 09:21 Respiratory Assessment Respiratory Assessment - director of corporate marketing: Respiratory Tract Infection Hx - director of corporate marketing Hx Respiratory Tract Infection No 01/03/25 14:26 STOP Sleep Apnea STOP Sleep Apnea - director of corporate marketing: STOP Sleep Apnea - director of corporate marketing Hx Hypertension Yes: CONTROLLED WITH MED 01/03/25 14:26 Hx Sleep Apnea No 01/03/25 14:26 CPAP BIPAP Do you snore loudly (louder No 01/03/25 14:26 than talking or can be heard Do you often feel tired/ No 01/03/25 14:26 fatigued/ sleepy during daytime? Has anyone observed you stop No 01/03/25 14:26 breathing during sleep? STOP Results Negative 01/03/25 14:26 QUESTION #5 FULL TEXT : Do you snore loudly (louder than talking or can be heard through closed doors)? 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 Specify any problems Hx of Preganancy in last 3 N/A 01/03/25 14:26 Months Nurse Filling Out Transfusion [facility] 01/03/25 14:26 & Questions: Date: 01/03/25 01/03/25 14:26 Time: 14:27 01/03/25 14:26 Patient unable to answer at this time (ie. confused, unrespo /Reproduction History /Reproductive History - director of corporate marketing: /Reproductive Hx- director of corporate marketing Hx Now No 01/03/25 14:26 Gestational Age (in weeks): EDC: Hx Hx Para Hx Section SAB No 01/03/25 14:26 PFSH Medical History Arthritis Cluster headache History of diverticulitis Non-smoker History of echocardiogram History of stress test Cardiology follow-up encounter Intrinsic sphincter deficiency Vaginal atrophy Nocturia Mixed incontinence Overactive bladder Depression Hyperthyroidism Former smoker Hypertension GERD (gastroesophageal reflux disease) Diverticulitis Home Medications ?Medication ?Instructions ?Recorded ?Last Taken ?Type omeprazole 40 mg capsule,delayed 40 mg PO DAILY reflux 03/03/21 Unknown History release gabapentin 300 mg capsule 300 mg PO TID PRN pain 11/21 Unknown History hydrochlorothiazide 12.5 mg tablet 12.5 mg PO QDAY Unknown History magnesium oxide 400 mg (241.3 mg 400 mg PO BID 5 Unknown History magnesium) tablet potassium chloride 10 mEq 10 meq PO QDAY 11/21/24 Unkn own History tablet,extended release topiramate 25 mg tablet 25 mg PO BID PRN headache Unknown History trazodone 50 mg tablet 50 mg PO QHS PRN sleep 11/21 Unknown History vibegron 75 mg tablet (Gemtesa) 75 mg PO QDAY 11/21/24 Unknown History amlodipine 5 mg tablet 5 mg PO QDAY 12/31/24 Unknow n History ascorbic acid (vitamin C) 500 mg 1 g PO DAILY 01/03/25 Unknown History tablet (Vitamin C) cranberry 500 mg capsule 500 mg PO DAILY 01/03/25 Unk nown History paroxetine HCl 10 mg tablet mg PO 01/07/25 Unknown His tory Allergy/AdvReac Type Severity Reaction Status Date / Time adhesive tape Allergy skin falls Verified 01/07/25 08:34 off oxycodone AdvReac Other Verified 01/07/25 08:34 Family History Other Hypertension Surgical History History of colectomy History of hernia repair History of shoulder surgery History of hand surgery History of hysterectomy History of cholecystectomy History of colostomy reversal History of colostomy History of appendectomy Social History household members: significant other housing: house Smoking Status: Never smoker alcohol intake: current alcohol intake frequency: holidays/special occasions only substance use type: does not use Audit: Pertinent Findings HISTORY of Pertinent Findings History of Pertinent Findings: EKG Pertinent Findings EKG Perinent findings 10/08/2024. Sinus 01/03/25 17:55 bradycardia 51 bpm. Poor R wave progression may be secondary to pulmonary disease. Consider old anterior infarct. Echo Pertinent Findings Echo (EF%) pertinent findings October 02, 2024. EF of 50 to 01/03/25 17:56 55%. No aortic stenosis. No evidence of pulmonary hypertension. Pertinent Findings EKG Perinent findings: January 08, 2025. Sinus bradycardia at 56 bpm. Compared to EKG of March 03, 2021 nonspecific T wave abnormality is no longer evident in inferior leads. Recommendation Anesthesia Recommendation Anesthesia recommendation: OPTIMIZED for anesthesia
[2025-01-10] VITALS (10 sets, daily range): BP systolic 132–146; BP diastolic 39–73; PULSE 51–67; RESP 16–20; TEMP 36.1–36.7; O2SAT 96–100; BMI 29.3
[2025-01-10] MEDS: Lactated Ringers 1,000 ML 15 ML IV (08:43)
--- NOTE | 2025-01-10 09:03 | HP.PCM_ITS ---
History and Physical Date of Admission: 01/10/25 Date of Service: 01/07/25 MR#: [id number] Acct: [id number] Name: PATRICIA BHAGAT Rep #: [id number] : 1950 Provider: Dr. Celeste Tsang MD Age/Sex: 74/F Location[place] [facility] [place] Status: Signed Intake Vital Signs 12/31/2508:21 01/08/2508:34 Height 5 ft 5 in 5 ft 5 in Weight: 179 lb 179 lb BMI 29.7 29.7 BP 122/62 H 127/65 H Pulse 55 L 53 L Intake Visit Reasons: Pre-op visit Chief Complaint: preoperation visit Lung Puller Required: No Accompanied by: self Is patient in pain?: No Allergies adhesive tape Allergy (Verified 01/07/25 08:34) skin falls off oxycodone Adverse Reaction (Verified 01/07/25 08:34) Other Medications ?Medication ?Instructions ?Recorded ?Confirmed ?Type omeprazole 40 mg capsule,delayed 40 mg PO DAILY reflux 03/03/21 01/07/25 History release gabapentin 300 mg capsule 300 mg PO TID PRN pain 11/21/24 01/07/25 History hydrochlorothiazide 12.5 mg tablet 12.5 mg PO QDAY 11/21/24 01/07/25 Histor y magnesium oxide 400 mg (241.3 mg 400 mg PO BID 11/21/24 01/07/25 History magnesium) tablet potassium chloride 10 mEq 10 meq PO QDAY 11/21/24 01/07/25 History tablet,extended release topiramate 25 mg tablet 25 mg PO BID PRN headache 11/21/2401/07 History trazodone 50 mg tablet 50 mg PO QHS PRN sleep 11/21/24 01/07/25 History vibegron 75 mg tablet (Gemtesa) 75 mg PO QDAY 11/21/24 01/07/25 History amlodipine 5 mg tablet 5 mg PO QDAY 12/31/24 01/07/25 History ascorbic acid (vitamin C) 500 mg 1 g PO DAILY 01/03/25 01/07/25 History tablet (Vitamin C) cranberry 500 mg capsule 500 mg PO DAILY 01/03/25 01/07/25 Histor y paroxetine HCl 10 mg tablet mg PO 01/07/25 01/07/25 History Have you fallen in the past year?: No Nurse's Note: Patient is unable to leave a sample today- patient left a preop culture on tuesday. [facility] Medical History Arthritis Cluster headache History of diverticulitis Non-smoker History of echocardiogram History of stress test Cardiology follow-up encounter Intrinsic sphincter deficiency Vaginal atrophy Nocturia Mixed incontinence Overactive bladder Depression Hyperthyroidism Former smoker Hypertension GERD (gastroesophageal reflux disease) Diverticulitis Surgical History History of colectomy History of hernia repair History of shoulder surgery History of hand surgery History of hysterectomy History of cholecystectomy History of colostomy reversal History of colostomy History of appendectomy Family History Other Hypertension Social History household members: significant other housing: house Smoking Status: Never smoker alcohol intake: current alcohol intake frequency: holidays/special occasions only substance use type: does not use HPI HPI Urology Chief Complaint: preoperation visit Details: PATRICIA BHAGAT, is a 74 F. The patient is here for preoperative history and physical prior to midurethral sling, cystoscopy. There are no new symptoms since the last visit. The procedure, recovery and expectations were explained. The risks, benefits and alternatives were discussed, including but not limited to, the risks of anesthesia, bleeding, infection, injury, pain and the need for further intervention. We have discussed the risk of exposure to and/or potential harm posed by the COVID-19 virus with having a surgery/procedure at this time. A joint decision was made at this time to proceed with the scheduled surgery/pr ocedure as indicated on the consent form. ROS Const Constitutional: No chills, fatigue, fever(s), headache(s), night sweats, weakness, weight change, abnormal sleep pattern or change in appetite Eyes Eyes: No change in vision ENT ENT: No headache(s) or dry mouth Resp Respiratory: No cough, chest congestion, shortness of breath or wheezing Cardio Cardiology: Positive for other (No chest pain.); No shortness of breath, irregular heart rhythm or lightheadedness Gastro GI: Positive for other (No nausea.); No abdominal pain, change in bowel habits, constipation, diarrhea or vomiting Musc Musculoskeletal: No abnormal gait Skin Skin: No yellowing of the eye, lesions, itchy eyes, rash or skin ulcer Neuro Neurology: No abnormal gait, confusion, dizziness, weakness, headache(s) or memory loss Psych Psychiatric: No abnormal sleep pattern, No change in appetite, No confusion and No memory loss Endo Endocrine: No fatigue, increased thirst/drinking or weight change Aller/Imm Allergy/Immunologic: No itchy eyes or wheezing Sudhakar/Lymp Hematologic/Lymphatic: No easy bleeding, easy bruising or enlarged lymph nodes Exam Const General: cooperative, healthy appearing, comfortable and no acute distress [facility] Head: normocephalic and atraumatic Ears: hearing grossly normal bilaterally and external ears normal Nose: external nose normal Eyes General: appearance normal, both eyes and all related structures Neck Neck: normal visual inspection and trachea midline Chest Chest palpation & inspection: normal inspection of the chest Resp Effort & Inspection: normal respiratory effort, able to speak in complete sentences and symmetric chest movement Cardio Rate: regular rate GI Inspection: normal to inspection Palpation: soft and nontender General: No CVA tenderness Skin General: no rashes or lesions noted Neuro General: patient alert, patient awake, patient oriented x3 and CN's II-XI intact bilaterally Extrem General: normal to inspection Psych Appearance: grossly normal and well kempt Mental Status: mental status grossly normal Coding Level of Care Code Off vis,est,level 4 Diagnoses Intrinsic sphincter deficiency N36.42 Mixed incontinence N39.46 Vaginal atrophy N95.2 Nocturia R35.1 Overactive bladder N32.81 UTI (urinary tract infection) N39.0 Assessment and Plan Assessment and Plan (1) Intrinsic sphincter deficiency: Status: Acute (2) Mixed incontinence: Status: Acute (3) Vaginal atrophy: Status: Acute (4) Nocturia: Status: Acute (5) Overactive bladder: Status: Acute (6) UTI (urinary tract infection): Status: Acute Plan Urine culture proceed with intervention as scheduled consent signed Clinical Quality Measures Falls Risk Screening/Assistive Devices Have you fallen in the past year?: No 01/07/25 0853 <Electronically signed by Celeste Tsang MD> Date [facility] MD
--- NOTE | 2025-01-10 09:03 | PCM.OPRPT ---
Operative Report (Standard) Operative Information Date of Procedure: 01/10/25 Pre-Operative Diagnosis: Stress urinary incontinence, intrinsic sphincter deficiency Post-Operative Diagnosis: Same Surgery/Procedure Performed: Cystoscopy, mid urethral sling insertion activities therapist: No Type of Anesthesia: General RN Documented Start/Stop Times: Operation Date: 01/10/25 10:00 Case Time Into Pre-Op 01/10/25 08:32 Anesthesia Start 01/10/25 10:05 Into Room 01/10/25 10:05 Out of Pre-Op 01/10/25 10:05 Procedure Start 01/10/25 10:21 Procedure End 01/10/25 10:37 Anesthesia End 01/10/25 10:41 Out of Room 01/10/25 10:41 Into Recovery 01/10/25 10:45 Procedure Start Time: 10:21 Procedure Stop Time: 10:37 Select all DRAINS/GRAFTS/IMPLANTS that apply: Implanted device Implanted device details: Altis mid urethral sling Estimated Blood Loss: 10cc Specimen collected: No Description of surgery: The patient is a 74-year-old female with stress urinary incontinence and intrinsic sphincter deficiency who presents for a mid urethral sling insertion. Informed consent was obtained. The patient was taken to the operating room and placed on the operating room table. Anesthesia monitored the head, neck, airway, IV access and vital signs throughout the case. Once anesthesia was appropriately administered, she was placed into dorsal lithotomy in Trendelenburg position and was prepped and draped in usual sterile fashion. A 16 Kinyarwanda Markham catheter was inserted to straight drain and the bladder was emptied. The mid urethra was isolated and injected submucosally with 1% lidocaine with epinephrine for hydrostatic dissection and hemostatic control. A vertical midline incision was made approximately 2 cm in length. Blunt and sharp dissection was performed on either side of the urethra with care being taken to avoid entrance into the urethra or the vaginal mucosa. Using the trocars provided, the tines of the mid urethral sling were passed through the incision and through the obturator complexes bilaterally with care being taken to avoid entrance into the vaginal mucosa or urethra. The sling was then positioned against the urethra without tension using the tensioning suture. Once positioning was completed, the tensioning suture was cut. The incision was closed using running interlocking 2-0 Vicryl. The patient was then taken out of Trendelenburg and the Markham catheter was removed. The cystoscope was inserted through the urethra under direct visualization into the urinary bladder. Cystoscopy revealed no evidence of mass, erythema, ulceration, bladder or urethral injury, laceration or foreign body. The cystoscope was then removed and the patient was awakened and taken to the recovery room in good condition. There were no complications during this procedure. Surgical Findings: Altis mid urethral sling Complications Complications: No Admit VTE Documentation VTE Present on Admission: Yes VTE Mechan Device Prophylaxis: SCD's VTE Pharm Prophylaxis ordered?: No Reason prophylaxis not ordered: Treatment Not Indicated
--- NOTE | 2025-01-10 09:09 | DCINST_ITS ---
Discharge Instructions Diet Discharge Diet: No restrictions Activity Discharge Activity: May Shower May resume sexual activity in: 4 weeks Lifting Restrictions: 5 pounds for 4 weeks Additional Activity Instructions:: No exercise, strenuous activity, hot tubs, swimming or tub bathing. No walking a dog or vacuuming. Dressing / Incision Call your doctor if your incision/area has: Continuous Slow Oozing, Sudden Increased Bleeding, Increased Pain/ Swelling and Foul Smelling Discharge Call your doctor if you observe: Fever of 101 or Higher, Inability to urinate and Inability to have a bowel movement Follow Up Care Please Follow Up With: Celeste Tsang MD Test Results: Test results from this visit will be discussed in further detail at your follow- up appointment, if applicable. Discharge Plan Admission Attending Provider: Celeste Tsang Primary Care Provider: Tommy Cardona Consulting Providers: Aldo Patel Instructions Print Language: Frisian Discharge Orders/Prescriptions Prescriptions: New tramadol 50 mg tablet 50 mg PO Q8H PRN (Reason: pain) 3 Days Qty: 10 0RF cephalexin 500 mg capsule 500 mg PO Q12 3 Days Qty: 6 0RF Continued gabapentin 300 mg capsule 300 mg PO TID PRN (Reason: pain) potassium chloride 10 mEq tablet extended release 10 meq PO QDAY trazodone 50 mg tablet 50 mg PO QHS PRN (Reason: sleep) hydrochlorothiazide 12.5 mg tablet 12.5 mg PO QDAY topiramate 25 mg tablet 25 mg PO BID PRN (Reason: headache) magnesium oxide 400 mg (241.3 mg magnesium) tablet 400 mg PO BID Gemtesa 75 mg tablet 75 mg PO QDAY amlodipine 5 mg tablet 5 mg PO QDAY paroxetine HCl 10 mg tablet PO omeprazole 40 mg capsule,delayed release(DR/EC) 40 mg PO DAILY Patient Comments: TAKE 1 CAPSULE BY MOUTH EVERY DAY cranberry 500 mg capsule 500 mg PO DAILY Rx Instructions: administer with a meal ascorbic acid (vitamin C) [Vitamin C] 500 mg tablet 1 g PO DAILY Other Ambulatory Orders: 12 Lead EKG (Routine) Location: None Selected Ordered By: Dr. Aldo Patel Referrals / Follow Up: Tommy Cardona MD [Primary Care Provider, Medical] Disposition Disposition (needs filled in before D/C Order can be placed): Home, Self Care
[2025-01-10 09:12] LABS: Hematocrit 41.5 % (37-47); Hemoglobin 14.6 g/dL (12.0-15.0); Mean Corp Hgb Conc 35.2 g/dL (32-36); Mean Corpuscular Volume 84.0 fL (81-99); Mean Platelet Vol. 10.2 fl (6.2-12.0); Platelet Count 263 K/mm3 (150-450); RBC Distribution Width CV 14.2 % (11.6-14.6); RBC Distribution Width SD 43.4 fl (35.1-43.9); Red Blood Count 4.94 M/mm3 (4.2-5.4); White Blood Count 7.7 K/mm3 (4.4-11.0)
--- NOTE | 2025-01-10 09:40 | PRE.ANES_ITS ---
ASA Classification* ASA Classification ASA Classification: 3 Assessment & Plan Anesthesia* Anesthesia Assessment Anesthesia Assessment: Discussed sedation and/or anesthesia options, risks, benefits, and alternatives with patient/parents/legal guardian/POA. Questions invited. The patient/parents/legal guardian/POA seems to understand and agrees to proceed with anesthesia plan. Reviewed the physical assessment, medical history, allergy history and patient home medications list prior to surgery/procedure/anesthetic and documented any changes. Performed airway and anesthesia risk assessments. Anesthesia Type Anesthesia Type: General History Source History Obtained from:: Patient and Chart Anesthesia Focused Assessment* Temperature: 98 F Pulse Rate: 51 Blood Pressure: 145/73 Respiratory Rate: 16 Pulse Ox: 99 Oxygen Delivery Method: Room Air Airway Assessment Mouth opens: >3 cm Mallampati Score: II Teeth Condition: Partial (Patient has a permanent upper bridge which is tight.) and Implants (Patient has a couple implants. They are tight.) Neck Range of motion (ROM): Limited ROM (Slight Decrease) Labs Anesthesia Preop lab: CBC WBC, (4.4-11.0) 7.7 K/mm3 Today, 09:00 RBC, (4.2-5.4) 4.94 M/mm3 Today, 09:00 Hgb, (12.0-15.0) 14.6 g/dL Today, 09:00 Hct, (37-47) 41.5 % Today, 09:00 Plt Count, (150-450) 263 K/mm3 Today, 09:00 CHEMISTRY Potassium, (3.3-5.1) 3.9 mmol/L 01/08/25, 13:13 Sodium, (133-145) 137 mmol/L 01/08/25, 13:13 BUN, (4-19) 28 mg/dL H 01/08/25, 13:13 Creatinine, (0.70-1.20) 0.95 mg/dL 01/08/25, 13:13 Glucose, (70-99) 174 mg/dL H 01/08/25, 13:13 COAG Pre-Assessment Diagnosis/Proposed Procedure Planned Operative Procedure(s): (N/A) Cysto, Mid-urethral sling Altis Anesthesia History 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 When Was Last Pacemaker Check QUESTION #4 FULL TEXT: You/Your Family Experience fever (hyperthermia) with Anesthesia Last Oral Intake Last Oral intake: Last Oral Intake NPO since 07:00 01/10/25 08:34 Meds taken in AM with sips of Yes 01/10/25 08:34 water? Meds patient instructed to take am of surgery Any additional information?: Yes Meds taken in AM with sips of water?: Yes Meds patient instructed to take am of surgery: Omeprazole PONV PONV - corncob pipe supervisor: PONV - corncob pipe supervisor Female Yes 01/03/25 14:26 HX of Motion Sickness No 01/03/25 14:26 HX of N/V After Surgery No 01/03/25 14:26 Non-Smoker Yes 01/03/25 14:26 Duration of Surgery greater No 01/03/25 14:26 than 60 minutes Number of Risk Factors 2 01/03/25 14:26 PONV Score Moderate Risk 01/03/25 14:26 Height & Weight Height & Weight: Anesthesia: Height & Weight Height 5 ft 5 in 01/10/25 08:34 Weight: 80 kg 01/10/25 08:34 Body Mass Index (BMI) 29.3 01/10/25 08:34 Respiratory Assessment Respiratory Assessment - corncob pipe supervisor: Respiratory Tract Infection Hx - corncob pipe supervisor Hx Respiratory Tract Infection No 01/03/25 14:26 STOP Sleep Apnea STOP Sleep Apnea - corncob pipe supervisor: STOP Sleep Apnea - corncob pipe supervisor Hx Hypertension Yes: CONTROLLED WITH MED 01/03/25 14:26 Hx Sleep Apnea No 01/03/25 14:26 CPAP BIPAP Do you snore loudly (louder No 01/03/25 14:26 than talking or can be heard Do you often feel tired/ No 01/03/25 14:26 fatigued/ sleepy during daytime? Has anyone observed you stop No 01/03/25 14:26 breathing during sleep? STOP Results Negative 01/03/25 14:26 QUESTION #5 FULL TEXT : Do you snore loudly (louder than talking or can be heard through closed doors)? 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 Specify any problems Hx of Preganancy in last 3 N/A 01/03/25 14:26 Months Nurse Filling Out Transfusion NBUCHER 01/03/25 14:26 & Questions: Date: 01/03/25 01/03/25 14:26 Time: 14:27 01/03/25 14:26 Patient unable to answer at this time (ie. confused, unrespo /Reproduction History /Reproductive History - corncob pipe supervisor: /Reproductive Hx- corncob pipe supervisor Hx Now No 01/03/25 14:26 Gestational Age (in weeks): EDC: Hx Hx Para Hx Section SAB No 01/03/25 14:26 Active Medications Active Medications: Current Medications Generic Name Dose Route Start Last Admin Trade Name Freq PRN Reason Stop Dose Admin Lactated Ringer's 1,000 mls @ 15 mls/hr 01/10/25 08:45 01/10/25 08:43 IV 15 mls/hr .Q48H FATUO Administration PFSH Medical History Arthritis Cluster headache History of diverticulitis Non-smoker History of echocardiogram History of stress test Cardiology follow-up encounter Intrinsic sphincter deficiency Vaginal atrophy Nocturia Mixed incontinence Overactive bladder Depression Hyperthyroidism Former smoker Hypertension GERD (gastroesophageal reflux disease) Diverticulitis Home Medications ?Medication ?Instructions ?Recorded ?Last Taken ?Type omeprazole 40 mg capsule,delayed 40 mg PO DAILY reflux 03/03/21 01/10/25 07:00 History release gabapentin 300 mg capsule 300 mg PO TID PRN pain 11/21 Unknown History hydrochlorothiazide 12.5 mg tablet 12.5 mg PO QDAY Unknown History magnesium oxide 400 mg (241.3 mg 400 mg PO BID Unknown History magnesium) tablet potassium chloride 10 mEq 10 meq PO QDAY 11/21/24 Unkn own History tablet,extended release topiramate 25 mg tablet 25 mg PO BID PRN headache Unknown History trazodone 50 mg tablet 50 mg PO QHS PRN sleep 11/21 Unknown History vibegron 75 mg tablet (Gemtesa) 75 mg PO QDAY 11/21/24 Unknown History amlodipine 5 mg tablet 5 mg PO QDAY 12/31/24 Unknow n History ascorbic acid (vitamin C) 500 mg 1 g PO DAILY 01/03/25 Unknown History tablet (Vitamin C) cranberry 500 mg capsule 500 mg PO DAILY 01/03/25 Unk nown History paroxetine HCl 10 mg tablet mg PO 01/07/25 Unknown His tory Allergy/AdvReac Type Severity Reaction Status Date / Time adhesive tape Allergy skin falls Verified 01/10/25 08:30 off oxycodone AdvReac Other Verified 01/10/25 08:30 Family History Other Hypertension Surgical History History of colectomy History of hernia repair History of shoulder surgery History of hand surgery History of hysterectomy History of cholecystectomy History of colostomy reversal History of colostomy History of appendectomy Social History household members: significant other housing: house Smoking Status: Never smoker alcohol intake: current alcohol intake frequency: holidays/special occasions only substance use type: does not use Review of Systems (Anesthesia) ROS Narrative System reviewed and no additional complaints, except as documented.
[2025-01-10] MEDS: Midazolam 2 MG/2 ML Syringe IV (10:05)
[2025-01-10] MEDS: Lactated Ringers 1,000 ML 1000 ML IV (10:05)
[2025-01-10] MEDS: Cefazolin 1 GM/5 ML Vial 2 GM IV (10:06)
[2025-01-10] MEDS: Lidocaine 1% (5 ml sdv) 5 ML Vial 4 ML IV (10:10)
[2025-01-10] MEDS: fentaNYL 100 MCG/2 ML Ampul IV (10:20)
[2025-01-10] MEDS: Lidocaine 1% /Epi 1:100 (20ml) 20 ML Vial (10:31)
--- NOTE | 2025-01-10 10:53 | PCM.POST.ANE ---
Anesthesia: Postop Eval I Current Vital Signs Temperature: 97.1 F Pulse Rate: 67 Blood Pressure: 141/52 Respiratory Rate: 20 Pulse Ox: 97 Oxygen Delivery Method: Room Air Assessment Airway patent: Yes Spontaneous unlabored respirations: Yes Mental status: Awake and Calm nausea: No Vomiting: No Anesthesia Complication: No Fluid Hydration Crystalloid volume administer (ml): 500 Total IV fluid infused: 500 Progress Note Anesthesia document: Postop Eval 1 completed: Yes
--- NOTE | 2025-01-10 13:42 | POSTOPAN2_ITS ---
Anesthesia Postop Eval I Sum Postop Eval Completion status Anesthesia document: Postop Eval 1 completed: Yes Anesthesia Postop Eval I Summary Anesthesia Postop Eval I Summary: Anesthesia Postop Eval I: Assessment Summary Airway patent Yes 01/10/25 10:54 [email or web address] Spontaneous unlabored Yes 01/10/25 10:54 [email or web address] [email or web address] respirations Mental status Awake,Calm 01/10/25 10:54 [email or web address] [email or web address] nausea No 01/10/25 10:54 [email or web address] [email or web address] Vomiting No 01/10/25 10:54 [email or web address] [email or web address] Anesthesia Postop Eval I: Fluid Summary Crystalloid volume administer 500 01/10/25 10:54 [email or web address] [email or web address] (ml) Colloids volume administered ( ml) Blood Product volume administered (ml) Total IV fluid infused 500 01/10/25 10:54 [email or web address] Anesthesia Postop Eval I: Summary Notes Anesthesia Complication No 01/10/25 10:54 [email or web address] [email or web address] Anesthesia Complication Comment: Post-operative progress note Anesthesia: Postop Eval II Evaluation Mental status: Awake and Calm Pain Level: 1 nausea: No Vomiting: No Complications Anesthesia Complication: No
--- NOTE | 2025-01-10 13:42 | PCM.POSTANE2 ---
Anesthesia Postop Eval I Sum Postop Eval Completion status Anesthesia document: Postop Eval 1 completed: Yes Anesthesia Postop Eval I Summary Anesthesia Postop Eval I Summary: Anesthesia Postop Eval I: Assessment Summary Airway patent Yes 01/10/25 10:54 [email or web address] Spontaneous unlabored Yes 01/10/25 10:54 MATHEMATICS [email or web address] respirations Mental status Awake,Calm 01/10/25 10:54 [email or web address] [email or web address] nausea No 01/10/25 10:54 MATHEMATICS [email or web address] Vomiting No 01/10/25 10:54 [email or web address] [email or web address] Anesthesia Postop Eval I: Fluid Summary Crystalloid volume administer 500 01/10/25 10:54 [email or web address] (ml) Colloids volume administered ( ml) Blood Product volume administered (ml) Total IV fluid infused 500 01/10/25 10:54 [email or web address] Anesthesia Postop Eval I: Summary Notes Anesthesia Complication No 01/10/25 10:54 [email or web address] Anesthesia Complication Comment: Post-operative progress note Anesthesia: Postop Eval II Evaluation Mental status: Awake and Calm Pain Level: 1 nausea: No Vomiting: No Complications Anesthesia Complication: No
== END 2025-01-10 17:09 | disposition home or self-care (01) ==
LOC: SDC 08:12 → AC 08:13
PROVIDERS: Anesthesiology; PCP Family Medicine; Referring Provider Urology; Visit Provider Urology
PROC: 0TJB8ZZ Inspection of Bladder, Via Natural or Artificial Opening Endoscopic (ICD-10-PCS; CPT 57288; principal; 2025-01-10 09:50)
DX: N39.46 Mixed incontinence (principal); N39.0 Urinary tract infection, site not specified; N32.81 Overactive bladder; I10 Essential (primary) hypertension; R35.1 Nocturia; N36.42 Intrinsic sphincter deficiency (ISD); Z79.899 Other long term (current) drug therapy; K21.9 Gastro-esophageal reflux disease without esophagitis
CPT/HCPCS: 57288; 00860; 36415; 80048; 85027; 93005; C1771

== ENCOUNTER → 2025-02-07 | Outpatient (CLI) | payer MEDICARE, BC, SELFPAY ==
--- NOTE | 2025-02-07 12:45 | VDLE_ITS ---
Reason For Study VL/Venous Duplex US - Andres Extrem
--- NOTE | 2025-02-07 12:45 | ART_ITS ---
Reason For Study VL/Lower Ext Art Exam w/o Exercis
== END | disposition home or self-care (01) ==
LOC: CVS 12:40
PROVIDERS: PCP Family Medicine; Referring Provider Podiatrist Foot & Ankle Surgery; Visit Provider Podiatrist Foot & Ankle Surgery
DX: I73.89 Other specified peripheral vascular diseases (principal); M79.605 Pain in left leg; M79.604 Pain in right leg
CPT/HCPCS: 93923; 93970